=== PATIENT | male | born 1955 | race Hispanic/Latino ===

== ENCOUNTER 2018-06-29 21:20 | Inpatient (IN) | payer BC, OTHER ==
--- NOTE | 2018-06-29 21:32 | ED PDOC ---
Arrival/HPI - General Time Seen by Provider: 06/29/18 21:21 Historian: Patient - History of Present Illness Narrative History of Present Illness (Text): 06/29/18 21:20 Eduin Young is a 62 year old male smoker, whose past medical history includes NIDDM, hyperlipidemia, and GERD, who presents to the Emergency department brought in by EMS status post syncopal episode. Patient states he was in bed prior to arrival when he began feeling increasingly dizzy and weak. Patient states he attempted to get out of bed and reports patient subsequently had a syncopal episode. EMS was notified, patient noted to be in ventricular tachycardia and patient given Amiodarone bolus en route to the hospital. Rhythm strip obtained from EMS shows wide complex V-tach. On arrival to Emergency department, patient reports left-sided chest pain, with associated generalized weakness and dizziness with movement. Patient denies any history of cardiac disease, shortness of breath, fever, chills, abdominal pain, vomiting, headache, or any other complaints. PMD: Dr. Avina Time/Duration: Prior to Arrival Symptom Onset: Sudden Symptom Course: Unchanged Activities at Onset: Light Context: Home Past Medical History - Provider Review Nursing Documentation Reviewed: Yes Family/Social History - Physician Review Nursing Documentation Reviewed: Yes Family/Social History: Unknown Family HX Allergies/Home Meds Allergies/Adverse Reactions: Allergies shellfish derived Allergy (Verified 06/29/18 21:37) RASH Home Medications: Home Meds Medication Instructions Recorded Confirmed Atorvastatin [Lipitor] 20 mg PO DAILY 06/30/18 06/30/18 Omeprazole 20 mg PO DAILY 06/30/18 06/30/18 metFORMIN [glucOPHAGE] 1,000 mg PO BID 06/30/18 06/30/18 Review of Systems - Physician Review All systems were reviewed & negative as marked: Yes - Review of Systems Constitutional: Normal. absent: Fevers Eyes: Normal ENT: Normal Respiratory: Normal. absent: SOB, Cough Cardiovascular: Chest Pain, Syncope Gastrointestinal: Normal. absent: Abdominal Pain, Diarrhea, Nausea, Vomiting Genitourinary Male: Normal. absent: Dysuria, Frequency, Hematuria, Urinary Output Changes Musculoskeletal: Normal. absent: Back Pain, Neck Pain Skin: Normal. absent: Rash Neurological: Dizziness. absent: Headache Endocrine: Normal Hemo/Lymphatic: Normal Psychiatric: Normal Physical Exam Vital Signs Reviewed: Yes Temperature: Afebrile Blood Pressure: Normal Pulse: Regular Respiratory Rate: Normal Appearance: Positive for: Well-Appearing, Non-Toxic, Comfortable Pain Distress: None Mental Status: Positive for: Alert and Oriented X 3 - Systems Exam Head: Present: Atraumatic, Normocephalic Pupils: Present: PERRL Extroacular Muscles: Present: EOMI Conjunctiva: Present: Normal Mouth: Present: Moist Mucous Membranes Neck: Present: Normal Range of Motion Respiratory/Chest: Present: Clear to Auscultation, Good Air Exchange. No: Respiratory Distress, Accessory Muscle Use Cardiovascular: Present: Regular Rate and Rhythm, Normal S1, S2. No: Murmurs Abdomen: No: Tenderness, Distention, Peritoneal Signs Back: Present: Normal Inspection Upper Extremity: Present: Normal Inspection. No: Cyanosis, Edema Lower Extremity: Present: Normal Inspection. No: Edema Neurological: Present: GCS=15, CN II-XII Intact, Speech Normal Skin: Present: Warm, Dry, Normal Color. No: Rashes Psychiatric: Present: Alert, Oriented x 3, Normal Insight, Normal Concentration Medical Decision Making ED Course and Treatment: 06/29/18 21:20 Impression: 62 year old male complaining of chest pain and dizziness. Plan: -- EKG -- Chest X-ray -- Labs, cardiac enzymes -- Reassess and disposition Progress Notes: Pt seen on arrival to Emergency department. Rhythm strip obtained from EMS shows wide complex V-tach. Pt placed on continuous telemetry. 06/29/18 21:27 Reviewed EKG, NSR at [address] elevations/changes in anterolateral leads. LAD. 06/29/18 21:[address] Roblero, icebox man instrumentation technologist, EKG sent to him for review. 06/29/18 21:[address] Roblero, who reviewed EKG, states to call [facility]. Recommends pt receive Plavix, Aspirin, and Integrilin. [facility] called. 06/29/18 21:[address] Sosa, law secretary, who is aware and agrees with plan. 06/29/18 21:57 Chest X-ray reviewed, shows cardiomegaly. 06/29/18 22:08 Labs reviewed, hgb:8.9, potassium: 2.3, calcium: 5.9, troponin: 5.21. K-dur ordered. 06/29/18 22:11 Pt taken to labor mediator. 06/29/18 23:[address] Larsen, who is aware and agrees with plan. Accepts pt in to his service. Pt will be admitted to ICU for acute AL. - Critical Care Critical Care Minutes: 30 minutes Narrative Critical Care (Text): Management of [facility] - Lab Interpretations I have reviewed the lab results: Yes - RAD Interpretation Coin Machine Collector Supervisor: ED Physician - EKG Interpretation Interpreted by ED Physician: Yes Type: 12 lead EKG - Scribe Statement The provider has reviewed the documentation as recorded by the Ashwini Ledbetter Provider Scribe Attestation: All medical record entries made by the Scribe were at my direction and personally dictated by me. I have reviewed the chart and agree that the record accurately reflects my personal performance of the history, physical exam, medical decision making, and the department course for this patient. I have also personally directed, reviewed, and agree with the discharge instructions and disposition. Disposition/Present on Arrival - Present on Arrival Any Indicators Present on Arrival: No - Disposition Have Diagnosis and Disposition been Completed?: Yes Diagnosis: Acute coronary syndrome, Ventricular tachycardia Disposition: HOSPITALIZED Disposition Time: 22:11 Condition: CRITICAL
[2018-06-29] MEDS ORDERED: Eptifibatide 20 mg/10mL Inj IVP ONE ×3 (21:38→22:24)
[2018-06-29 21:45] LABS: BASO # 0.05 K/mm3 (0.0-2.0); BASO % 0.5 % (0.0-3.0); EOS # 0.2 (0.0-0.7); EOS % 2.4 % (1.5-5.0); HEMOGLOBIN 8.9 g/dL (14.0-18.0); LYMPH # 2.8 (1.2-3.4); MEAN CELL VOLUME 71.3 fl (80.0-105.0); MEAN CORPUSCULAR HEMOGLOBIN 21.4 pg (25.0-35.0); MEAN CORPUSCULAR HGB CONC 30.1 g/dl (31.0-37.0); MONO # 0.6 (0.1-0.6); MONO % 5.8 % (1.0-6.0); RBC 4.15 10^6/uL (3.5-6.1); RED CELL DISTRIBUTION WIDTH 15.8 % (11.5-14.5); WHITE BLOOD COUNT 9.7 10^3/uL (4.5-11.0)
[2018-06-29 21:54] LABS: INR 1.48; PARTIAL THROMBOPLASTIN TIME 29.7 Seconds (26.9-38.3); PROTHROMBIN TIME 16.4 SECONDS (9.4-12.5)
[2018-06-29] MEDS ORDERED: Lidocaine PF 2% (5 ml) Inj (For Cardiac Arrhy) ONE ×2 (22:04→22:17)
[2018-06-29] MEDS ORDERED: Phenylephrine 10 mg/ml Inj ONE (22:04)
[2018-06-29] MEDS ORDERED: Midazolam 2 MG/2 ML VIAL ONE ×2 (22:05→22:33)
[2018-06-29] MEDS ORDERED: Heparin 2,000 ML IV ONE (22:06)
[2018-06-29] MEDS ORDERED: Iodixanol 320 MG/ML 200 ML BOTTLE IV ONE (22:06)
[2018-06-29] MEDS ORDERED: Iohexol 350mgl/ml 50 ML ONE (22:06)
[2018-06-29] MEDS ORDERED: Nitroglycerin 50mg in D5W 0 MG/0 ML BOTTLE IV ONE (22:06)
[2018-06-29] MEDS ORDERED: Iodixanol 320 MG/ML 100 ML BOTTLE IV ONE (22:06)
[2018-06-29 22:08] LABS: ALBUMIN 2.4 g/dL (3.0-4.8); ALT/SGPT 38 U/L (7-56); AST/SGOT 31 U/L (17-59); BLOOD UREA NITROGEN 14 mg/dL (7-21); CALCIUM 5.9 mg/dL (8.4-10.5); GFR NON-AFRICAN AMERICAN > 60; TROPONIN I 5.21 ng/mL
[2018-06-29] MEDS ORDERED: Potassium Chloride 20 mEq ER Tab PO ONE (22:08)
[2018-06-29] MEDS ORDERED: Eptifibatide 0.75 mg/ml 0 MG/0 ML BOTTLE IV ONE (22:24)
[2018-06-29] MEDS ORDERED: Amiodarone 150 mg/D5W 100 ml 150 MG/100 ML BAG ONE (22:28)
[2018-06-29] MEDS ORDERED: Famotidine 20mg/50ml 20 MG/50 ML BAG IVPB ONE (22:35)
[2018-06-29] MEDS ORDERED: DiphenhydrAMINE 50 mg/ml Inj ONE (22:35)
[2018-06-29] MEDS ORDERED: Morphine 2 mg/ml ISec ONE ×2 (22:58→23:11)
--- NOTE | 2018-06-29 23:17 | CP.PCM.CON ---
<AllieKarenmyranda - Last Filed: 06/30/18 00:51> History of Present Illness - History of Present Illness History of Present Illness: PGY1 ICU Consult Note for Dr. Sosa Patient is a 62-year-old M with PMH of Hyperlipidemia, T2DM (on Metformin), intermittent rectal bleeding, hiatal hernia who presents to [facility] for dizziness that began prior to arrival. Patient states he returned from lunch with his son, when he began feeling dizzy. Patient states he went to lay down in bed, and called his because he was feeling diaphoretic and dizzy. Per Patient's , Patient was slurring his speech, which resolved in the ED, per , and this prompted her to call EMS. Patient Denies chest pain, shortness of breath, headache, fever, chills, nausea, vomiting, and/or diarrhea, hematochezia, and/or black stool. Of note, Patient's states that the Patient complained of chest pain on 06/17/18, lasted for about 1 hour, and resolved on its own, but the Patient never complained of chest pain other than this incident. PMH: HLD, DMT2 PSH: Denies Family History: Mother alive: DMT2; Dad: 06/05 idiopathic pulmonary fibrosis Medications: omeprazole 20mg po daily atrovastatin 20mg po daily Glyburide/Metformin 5/500 daily Allergies: shellfish Social History: Patient smokes < 1 PPD starting at age 47yo, denies ETOH, denies recreational drugs PMD: Dr. Avina Review of Systems - Review of Systems All systems: reviewed and no additional remarkable complaints except (as stated in HPI) Past Patient History - Past Social History Smoking Status: Current Some Days Smoker - ENDOCRINE/METABOLIC Hx Diabetes Mellitus Type 2: Yes - GASTROINTESTINAL Hx Gastroesophageal Reflux: Yes - GENITOURINARY/GYNECOLOGICAL Hx Genitourinary Disorders: No - PSYCHIATRIC Hx Substance Use: No - ANESTHESIA Hx Anesthesia: No Hx Anesthesia Reactions: No Hx Malignant Hyperthermia: No Meds Allergies/Adverse Reactions: Allergies Allergy/AdvReac Type Severity Reaction Status Date / Time shellfish derived Allergy RASH Verified 06/29/18 21:37 Physical Exam - Constitutional Appears: No Acute Distress - Head Exam Head Exam: ATRAUMATIC, NORMAL INSPECTION, NORMOCEPHALIC - Eye Exam Eye Exam: EOMI, Normal appearance Pupil Exam: NORMAL ACCOMODATION - ENT Exam ENT Exam: Mucous Membranes Moist, Normal Exam - Neck Exam Neck exam: Positive for: Normal Inspection - Respiratory Exam Respiratory Exam: Clear to Auscultation Bilateral, NORMAL BREATHING PATTERN - Cardiovascular Exam Additional comments: NSR @83bpm. Slight ST elevations/changes in anterolateral leads. LAD. - GI/Abdominal Exam GI & Abdominal Exam: Normal Bowel Sounds, Soft. absent: Tenderness - Extremities Exam Extremities exam: Positive for: normal inspection, pedal pulses present. Negative for: joint swelling, pedal edema - Back Exam Back exam: NORMAL INSPECTION - Neurological Exam Neurological exam: Alert, CN II-XII Intact, Oriented x3 - Psychiatric Exam Psychiatric exam: Normal Affect, Normal Mood - Skin Skin Exam: Dry, Intact, Normal Color, Pallor, Warm Results - Vital Signs Recent Vital Signs: Last Vital Signs Temp 98 F 06/29/18 21:29 Pulse 84 06/29/18 21:29 Resp 18 06/29/18 21:29 BP 99/72 L 06/29/18 21:29 Pulse Ox 96 06/29/18 21:29 - Labs Result Diagrams: 06/30/18 00:18 06/29/18 21:30 Labs: Laboratory Results - last 24 hr 06/29/18 06/29/18 06/29/18 21:30 21:30 21:30 WBC 9.7 RBC 4.15 Hgb 8.9 L Hct 29.6 L MCV 71.3 L MCH 21.4 L MCHC 30.1 L RDW 15.8 H Plt Count 252 MPV 9.0 Neut % (Auto) 62.3 Lymph % (Auto) 29.0 Jennings % (Auto) 5.8 Eos % (Auto) 2.4 Baso % (Auto) 0.5 Lymph # (Auto) 2.8 Jennings # (Auto) 0.6 Eos # (Auto) 0.2 Baso # (Auto) 0.05 Absolute Neuts (auto) 6.01 PT 16.4 H INR 1.48 APTT 29.7 Sodium 137 Potassium 2.3 L* Chloride 114 H Carbon Dioxide 16 L Anion Gap 9 L BUN 14 Creatinine 0.7 L Est GFR ( Amer) > 60 Est GFR (Non-Af Amer) > 60 Random Glucose 318 H* Calcium 5.9 L* Total Bilirubin < 0.1 L AST 31 ALT 38 Alkaline Phosphatase 70 Lactate Dehydrogenase 348 Total Creatine Kinase 39 Troponin I 5.21 H* Total Protein 4.8 L Albumin 2.4 L Globulin 2.4 Albumin/Globulin Ratio 1.0 L Assessment & Plan - Assessment and Plan (Free Text) Assessment: Patient is a 62-year-old M with PMH of Hyperlipidemia, T2DM (on Metformin), i ntermittent rectal bleeding, hiatal hernia who presents to [facility] for dizziness that began prior to arrival. [facility] was called 2/2 acute WI. Patient is S/P cath with Dr. Roblero and being monitored in ICU. Acute WI S/P cath with Dr. Roblero - 2 stents in circ and 2 stents placed in RCA (follow-up on official report) - Cardioloy consulted; Dr. Roblero; recommendations appreciated [facility] called in ED Plavix, Aspirin, and Integrilin - Rhythm strip obtained from EMS shows wide complex V-tach - EKG, NSR at [address] elevations/changes in anterolateral leads. LAD. - CXR: Cardiomegaly - Troponin significant: 5.21 - Plavix 75mg PO daily - ASA 81mg PO daily - O2 PRN - Consistent carb diet - Monitor in ICU History of HLD - Continue home meds: Atorvastatin 20mg Daily - F/U lipid panel DMT2 - Hold home med (GLyburide/Metformin 5/500) - Start ISS - Hypoglycemic protocol - Accu checks ACHS - F/U HgbA1C Hypokalemia, 2.3 - Repleted in ED - F/U Mg - F/U CMP - Monitor daily CMP Anemia - Type and Screen - Hgb=8.9 - Monitor daily CBC PPx: - GI: protonix - DVT: SCD on Plavix - F/U MRSA screen Patient seen and case discussed with Dr. Ian Kelley PGY1 <Jorge Sosa - Last Filed: 06/30/18 03:09> Meds - Medications Medications: Current Medications Aspirin (Ecotrin) 81 mg PO DAILY DIANA Atorvastatin Calcium (Lipitor) 40 mg PO DIN DIANA Clopidogrel Bisulfate (Plavix) 75 mg PO DAILY DIANA Dextrose (Dextrose 50% Inj) 0 ml IV STAT PRN; Protocol PRN Reason: Hypoglycemia Protocol Sodium Chloride (Sodium Chloride 0.9%) 1,000 mls @ 50 mls/hr IV .Q20H DIANA Stop: 06/30/18 06:00 Dextrose (Dextrose 5% In Water 1000 Ml) 1,000 mls @ 0 mls/hr IV .Q0M PRN; Protocol PRN Reason: Hypoglycemia Protocol Insulin Human Regular (Humulin R) 0 units SC ACHS DIANA; Protocol Last Admin: 06/30/18 02:22 Dose: 8 units Results - Vital Signs Recent Vital Signs: Last Vital Signs Temp 98 F 06/29/18 21:29 Pulse 89 06/30/18 01:45 Resp 24 06/30/18 01:45 BP 123/80 06/30/18 01:45 Pulse Ox 97 06/30/18 01:45 - Labs Result Diagrams: 06/30/18 00:18 06/30/18 00:18 Labs: Laboratory Results - last 24 hr 06/29/18 06/29/18 06/29/18 21:30 21:30 21:30 WBC 9.7 RBC 4.15 Hgb 8.9 L Hct 29.6 L MCV 71.3 L MCH 21.4 L MCHC 30.1 L RDW 15.8 H Plt Count 252 MPV 9.0 Neut % (Auto) 62.3 Lymph % (Auto) 29.0 Jennings % (Auto) 5.8 Eos % (Auto) 2.4 Baso % (Auto) 0.5 Lymph # (Auto) 2.8 Jennings # (Auto) 0.6 Eos # (Auto) 0.2 Baso # (Auto) 0.05 Absolute Neuts (auto) 6.01 PT 16.4 H INR 1.48 APTT 29.7 Sodium 137 Potassium 2.3 L* Chloride 114 H Carbon Dioxide 16 L Anion Gap 9 L BUN 14 Creatinine 0.7 L Est GFR ( Amer) > 60 Est GFR (Non-Af Amer) > 60 Random Glucose 318 H* Calcium 5.9 L* Total Bilirubin < 0.1 L AST 31 ALT 38 Alkaline Phosphatase 70 Lactate Dehydrogenase 348 Total Creatine Kinase 39 Troponin I 5.21 H* Total Protein 4.8 L Albumin 2.4 L Globulin 2.4 Albumin/Globulin Ratio 1.0 L Triglycerides Cholesterol LDL Cholesterol Direct HDL Cholesterol Blood Type Blood Type Confirm Antibody Screen BBK History Checked 06/29/18 06/30/18 06/30/18 22:33 00:18 00:18 WBC 11.6 H RBC 5.27 Hgb 11.3 L D Hct 37.8 L MCV 71.7 L MCH 21.4 L MCHC 29.9 L RDW 15.9 H Plt Count 277 MPV 9.1 Neut % (Auto) 84.3 H Lymph % (Auto) 11.5 L Jennings % (Auto) 3.5 Eos % (Auto) 0.4 L Baso % (Auto) 0.3 Lymph # (Auto) 1.3 Jennings # (Auto) 0.4 Eos # (Auto) 0.1 Baso # (Auto) 0.03 Absolute Neuts (auto) 9.78 H PT INR APTT Sodium 136 Potassium 4.2 Chloride 103 Carbon Dioxide 23 Anion Gap 14 BUN 18 Creatinine 0.9 Est GFR ( Amer) > 60 Est GFR (Non-Af Amer) > 60 Random Glucose 368 H* Calcium 8.7 Total Bilirubin AST ALT Alkaline Phosphatase Lactate Dehydrogenase Total Creatine Kinase Troponin I Total Protein Albumin Globulin Albumin/Globulin Ratio Triglycerides 272 H Cholesterol 227 H LDL Cholesterol Direct 155 H HDL Cholesterol 29 Blood Type A POSITIVE Blood Type Confirm Antibody Screen Negative BBK History Checked No verified bt 06/30/18 00:18 WBC RBC Hgb Hct MCV MCH MCHC RDW Plt Count MPV Neut % (Auto) Lymph % (Auto) Jennings % (Auto) Eos % (Auto) Baso % (Auto) Lymph # (Auto) Jennings # (Auto) Eos # (Auto) Baso # (Auto) Absolute Neuts (auto) PT INR APTT Sodium Potassium Chloride Carbon Dioxide Anion Gap BUN Creatinine Est GFR ( Amer) Est GFR (Non-Af Amer) Random Glucose Calcium Total Bilirubin AST ALT Alkaline Phosphatase Lactate Dehydrogenase Total Creatine Kinase Troponin I Total Protein Albumin Globulin Albumin/Globulin Ratio Triglycerides Cholesterol LDL Cholesterol Direct HDL Cholesterol Blood Type Blood Type Confirm A POSITIVE Antibody Screen BBK History Checked Attending/Attestation - Attestation I have personally seen and examined this patient.: Yes I have fully participated in the care of the patient.: Yes I have reviewed all pertinent clinical information: Yes Notes (Text): 06/30/18 03:08 Patient was seen when he was in the ER. Medical record was reviewed. Agree with history , physical examination, assessment and plan. CCT spent 30 minutes.
[2018-06-29] MEDS ORDERED: Amiodarone 150 mg/D5W 100 ml 150 MG/100 ML BAG IVPB ONE (23:23)
[2018-06-29] MEDS ORDERED: Sodium Chloride 0.9% 1,000 ML IV SCH (23:30)
[2018-06-30 00:39] LABS: BASO # 0.03 K/mm3 (0.0-2.0); BASO % 0.3 % (0.0-3.0); EOS # 0.1 (0.0-0.7); EOS % 0.4 % (1.5-5.0); LYMPH # 1.3 (1.2-3.4); LYMPH % 11.5 % (22.0-35.0); MEAN CELL VOLUME 71.7 fl (80.0-105.0); MEAN CORPUSCULAR HEMOGLOBIN 21.4 pg (25.0-35.0); MEAN CORPUSCULAR HGB CONC 29.9 g/dl (31.0-37.0); MEAN PLATELET VOLUME 9.1 fl (7.0-11.0); MONO # 0.4 (0.1-0.6); MONO % 3.5 % (1.0-6.0); RBC 5.27 10^6/uL (3.5-6.1); RED CELL DISTRIBUTION WIDTH 15.9 % (11.5-14.5); WHITE BLOOD COUNT 11.6 10^3/uL (4.5-11.0)
[2018-06-30 00:47] LABS: HEMOGLOBIN 11.3 g/dL (14.0-18.0)
[2018-06-30 01:54] LABS: BLOOD UREA NITROGEN 18 mg/dL (7-21); CALCIUM 8.7 mg/dL (8.4-10.5); GFR NON-AFRICAN AMERICAN > 60; HDL CHOLESTEROL 29 mg/dL (29-60); LDL CHOLESTEROL 155 mg/dL (0-129)
[2018-06-30] MEDS ORDERED: Dextrose 50% SYRINGE Inj (50 ml) IV PRN (02:00)
[2018-06-30] MEDS: Insulin Regular 1 UNITS/0.01 ML ML SC SCH ×5 (02:22→23:51)
[2018-06-30] MEDS ORDERED: Insulin Regular 1 UNITS/0.01 ML ML ONE (02:24)
--- NOTE | 2018-06-30 04:20 | CARDCATH ---
PROCEDURE DATE: 06/29/2018 EMERGENCY CARDIAC CATHETERIZATION AND PERCUTANEOUS TRANSLUMINAL CORONARY ANGIOPLASTY HISTORY: The patient is a 62-year-old male who presents with near syncope today. He was found to have ventricular tachycardia which he was given amiodarone in the field. He was brought in here with his EKG was consistent with an inferior DE as well as anterior wall DE. The patient's past medical history includes diabetes mellitus, he is an active smoker and is noncompliant with medications as well as medical advice. The patient is morbidly obese. Because of this, an emergency cardiac catheterization was recommended. PROCEDURE: Emergency left heart catheterization with coronary angiography, left ventriculogram, PTCA and stent of an occluded right coronary artery as well as the circumflex artery. The right femoral artery was cannulated with a 6-Kinyarwanda sheath. There were no complications. I performed moderate sedation which included the presence of an independent trained observer that assisted monitoring the patient's level of consciousness and physiologic status. After administration of Versed and fentanyl, my intra service time was 45 minutes. The findings on catheterization revealed left ventricle that was globally hypokinetic. Estimated ejection fraction of 35% to 40%. The patient had a right dominant circulation. The RCA was occluded in its proximal portion. The left main artery was unremarkable. The LAD was occluded in its proximal portion which appeared chronic with collaterals filling to the distal LAD. The circumflex artery was a large vessel and codominant vessel. The circumflex in the AV groove branch was free of critical lesions. There was an obtuse marginal branch which branched into the superior-inferior branch. At the branch point, there was a 99% stenoses. In addition, the large obtuse marginal branch revealed a long 80% stenosis in its mid to distal portion. The patient was started on intravenous Angiomax on the fluoroscopic guide, the guiding catheter was placed in the RCA, and 0.014 ATW wire was used to cross the total occlusion. A 2.0 balloon was utilized to predilate the lesion. This was followed by implantation of 2.75 x 18 mm drug-eluting stent. After balloon deflation and removal, repeat coronary angiography revealed an excellent result with no residual stenosis and PIPPA-3 flow. The guider was then exchanged for a 7-Kinyarwanda guider as well as the sheath. Two wires were placed into the circumflex artery. A 2.0 balloon followed by implantation of a 3.5 x 12 mm drug-eluting stent. Repeat coronary angiography revealed an excellent result in the large obtuse marginal branch with preservation of flow in the inferior branch. A 2.5 x 15 mm drug-eluting stent was placed and deployed the mid and distal obtuse marginal branch. Repeat coronary angiography revealed no residual stenosis and PIPPA-3 flow. The patient tolerated the procedure well. Angio-Seal was used to close the femoral artery site. The patient tolerated the procedure well. In summary, the procedure was an emergency PTCA and stent of an acutely occluded RCA. PTCA and stent of a 99% obtuse marginal branch vessel as well as distal lesion in the vessel, all stents were drug-eluting stents. The cardiac catheterization revealed chronically occluded LAD as well as the left ventricle was globally hypokinetic. Given these findings, the patient was gone back to the ICU and was given IV amiodarone. He will remain on aspirin indefinitely and Plavix indefinitely. We will need to track his hemoglobin carefully given his baseline hemoglobin of 8.5. Transfusion may be necessary post-procedure. Barry Roblero MD
[2018-06-30] MEDS ORDERED: Influenza Vaccine 60 mcg/0.5 mL SYR (4YR UP) IM ONE (04:28)
[2018-06-30] MEDS ORDERED: Pneumococcal 23-Valent Vaccine IM ONE (04:28)
[2018-06-30 04:29] VITALS: BMI 41.2
[2018-06-30] MEDS ORDERED: Pantoprazole 40 mg EC Tab PO SCH (06:00)
[2018-06-30 06:04] LABS: BASO # 0.01 K/mm3 (0.0-2.0); BASO % 0.1 % (0.0-3.0); HEMOGLOBIN 10.7 g/dL (14.0-18.0); LYMPH # 0.8 (1.2-3.4); LYMPH % 8.8 % (22.0-35.0); MEAN CORPUSCULAR HEMOGLOBIN 21.3 pg (25.0-35.0); MEAN PLATELET VOLUME 9.1 fl (7.0-11.0); MONO % 0.4 % (1.0-6.0); PLATELET COUNT 278 10^3/uL (120.0-450.0); RBC 5.03 10^6/uL (3.5-6.1); RED CELL DISTRIBUTION WIDTH 15.7 % (11.5-14.5); WHITE BLOOD COUNT 9.2 10^3/uL (4.5-11.0)
[2018-06-30 07:18] LABS: ALB/GLOB RATIO 1.2 (1.1-1.8); ALBUMIN 3.7 g/dL (3.0-4.8); ALT/SGPT 48 U/L (7-56); AST/SGOT 69 U/L (17-59); BLOOD UREA NITROGEN 18 mg/dL (7-21); CALCIUM 8.5 mg/dL (8.4-10.5); GFR NON-AFRICAN AMERICAN > 60
[2018-06-30 08:18] LABS: LYMPHOCYTE 8 % (22.0-35.0); NEUTROPHIL 92 % (50.0-70.0)
[2018-06-30 08:19] LABS: PLATELET ESTIMATE NORMAL (NORMAL)
--- NOTE | 2018-06-30 09:25 | PN ---
DATE: 06/30/2018 CARDIOLOGY FOLLOWUP SUBJECTIVE: The patient is in bed. He is chest pain free. PHYSICAL EXAMINATION VITAL SIGNS: Blood pressure 125/75 and heart rates in the 80s, normal sinus rhythm. NECK: Negative JVD. LUNGS: Without rales. HEART: Reveal S1 and S2. Right groin site is stable. LABORATORY DATA: Hemoglobin is 10.7. Chemistries; glucose is 453. Troponin is 5.21. IMPRESSION: 1. Status post ventricular tachycardia. 2. Status post emergency percutaneous transluminal coronary angioplasty and stent of two vessels. 3. Acute inferior wall myocardial infarction. 4. Triple-vessel coronary artery disease. 5. Diabetes mellitus. 6. Anemia. 7. blood drawings from the emergency room which resulted in the false low hemoglobin which is better now without transfusions. Given these findings, we will add beta-blockers to his regimen. We will begin to mobilize the patient, he should be out of bed to chair today. Barry Roblero MD
--- NOTE | 2018-06-30 09:36 | RAD ---
Date of service: 06/29/2018 HISTORY: cp COMPARISON: None available. FINDINGS: LUNGS: No active pulmonary disease. PLEURA: No significant pleural effusion identified, no pneumothorax apparent. CARDIOVASCULAR: No aortic atherosclerotic calcification present. Cardiomegaly evident. No pulmonary vascular congestion. OSSEOUS STRUCTURES: No significant abnormalities. VISUALIZED UPPER ABDOMEN: Normal. OTHER FINDINGS: None. IMPRESSION: Cardiomegaly. No pulmonary vascular congestion. No infiltrates bilaterally.
--- NOTE | 2018-06-30 10:03 | CARD ---
APPROVED REPORT Date of service: 06/29/2018 EKG Measurement Heart [id number] <Conclusion> Normal sinus rhythm Left axis deviation Inferior infarct, age undetermined Anteroseptal infarct, age undetermined Abnormal ECG
--- NOTE | 2018-06-30 10:24 | CP.PCM.HP ---
<Luis Alfredo Leonard - Last Filed: 06/30/18 10:20> History of Present Illness - History of Present Illness History of Present Illness: H&P for Dr Larsen: 62-year-old male with past medical history of hyperlipidemia, diabetes mellitus, hiatal hernia, and active smoker presents to the emergency room with dizziness. Patient states that last night he became dizzy at around 8 PM. He went to lay in bed however he began feeling worse including diaphoretic and more dizzy. Patient's was concerned and EMS was called. At this time EKG showed wide complex tachycardia and amiodarone was started. Patient states that he did have very mild chest pain however he attributed it to his shoulder pain on his left side. He denies any episodes of dyspnea or palpitations. No other complaints PMH: As above PSH: Denies FH: Mother with diabetes, father due to idiopathic pulmonary fibrosis, grandfather passed from an [place] Medications: Refer to MAR Allergies: Shellfish SH: Active smoker of just less than 1 pack/day for 15 years, denies any alcohol or recreational drug use Present on Admission - Present on Admission Any Indicators Present on Admission: No Review of Systems - Review of Systems All systems: reviewed and no additional remarkable complaints except Past Patient History - Past Social History Smoking Status: Current Some Days Smoker - CARDIAC Hx Cardiac Disorders: Yes Hx Hypercholesterolemia: Yes - PULMONARY Hx Respiratory Disorders: Yes (Occasional cough.) Hx Sleep Apnea: Yes (Does not use mask at home.) - NEUROLOGICAL Hx Neurological Disorder: Yes Hx Dizziness: Yes (c/o dizziness at home; 06/29/18.) - HEENT Hx HEENT Problems: No - RENAL Hx Chronic Kidney Disease: No - ENDOCRINE/METABOLIC Hx Diabetes Mellitus Type 2: Yes - HEMATOLOGICAL/ONCOLOGICAL Hx Blood Disorders: Yes Hx Anemia: Yes - INTEGUMENTARY Hx Dermatological Problems: No - MUSCULOSKELETAL/RHEUMATOLOGICAL Hx Musculoskeletal Disorders: Yes Hx Arthritis: Yes (Bilateral knees and neck. Shoulder.) Hx Falls: No Hx Spinal Stenosis: Yes - GASTROINTESTINAL Hx Gastroesophageal Reflux: Yes - GENITOURINARY/GYNECOLOGICAL Hx Genitourinary Disorders: No - PSYCHIATRIC Hx Substance Use: No - SURGICAL HISTORY Hx Surgeries: No Hx Cardiac Catheterization: Yes (Code Heart 06/29/18) Hx Coronary Stent: Yes (Code Heart 06/29/18; x3 stents (1-RCA/2-CX)) - ANESTHESIA Hx Anesthesia: No Hx Anesthesia Reactions: No Hx Malignant Hyperthermia: No Meds Allergies/Adverse Reactions: Allergies Allergy/AdvReac Type Severity Reaction Status Date / Time shellfish derived Allergy RASH Verified 06/29/18 21:37 Physical Exam - Constitutional Appears: No Acute Distress - Head Exam Head Exam: ATRAUMATIC, NORMOCEPHALIC - Eye Exam Eye Exam: EOMI, PERRL - ENT Exam ENT Exam: Mucous Membranes Moist - Respiratory Exam Respiratory Exam: Clear to Auscultation Bilateral. absent: Wheezes - Cardiovascular Exam Cardiovascular Exam: REGULAR RHYTHM, +S1, +S2 - GI/Abdominal Exam GI & Abdominal Exam: Normal Bowel Sounds, Soft. absent: Tenderness - Extremities Exam Extremities exam: Negative for: calf tenderness, pedal edema - Neurological Exam Neurological exam: Alert, Oriented x3 - Psychiatric Exam Psychiatric exam: Normal Mood - Skin Skin Exam: Dry, Warm Results - Vital Signs Recent Vital Signs: Last Vital Signs Temp 97.9 F 06/30/18 04:30 Pulse 86 06/30/18 06:00 Resp 21 06/30/18 05:30 BP 116/73 06/30/18 05:30 Pulse Ox 95 06/30/18 05:30 - Labs Result Diagrams: 06/30/18 05:25 06/30/18 05:25 Labs: Laboratory Results - last 24 hr 06/29/18 06/29/18 06/29/18 21:30 21:30 21:30 WBC 9.7 RBC 4.15 Hgb 8.9 L Hct 29.6 L MCV 71.3 L MCH 21.4 L MCHC 30.1 L RDW 15.8 H Plt Count 252 MPV 9.0 Neut % (Auto) 62.3 Lymph % (Auto) 29.0 Glynn % (Auto) 5.8 Eos % (Auto) 2.4 Baso % (Auto) 0.5 Lymph # (Auto) 2.8 Glynn # (Auto) 0.6 Eos # (Auto) 0.2 Baso # (Auto) 0.05 Absolute Neuts (auto) 6.01 Neutrophils % (Manual) Lymphocytes % (Manual) Monocytes % (Manual) Platelet Evaluation PT 16.4 H INR 1.48 APTT 29.7 Sodium 137 Potassium 2.3 L* Chloride 114 H Carbon Dioxide 16 L Anion Gap 9 L BUN 14 Creatinine 0.7 L Est GFR ( Amer) > 60 Est GFR (Non-Af Amer) > 60 POC Glucose (mg/dL) Random Glucose 318 H* Calcium 5.9 L* Phosphorus Magnesium Total Bilirubin < 0.1 L AST 31 ALT 38 Alkaline Phosphatase 70 Lactate Dehydrogenase 348 Total Creatine Kinase 39 Troponin I 5.21 H* Total Protein 4.8 L Albumin 2.4 L Globulin 2.4 Albumin/Globulin Ratio 1.0 L Triglycerides Cholesterol LDL Cholesterol Direct HDL Cholesterol Blood Type Blood Type Confirm Antibody Screen BBK History Checked 06/29/18 06/30/18 06/30/18 22:33 00:18 00:18 WBC 11.6 H RBC 5.27 Hgb 11.3 L D Hct 37.8 L MCV 71.7 L MCH 21.4 L MCHC 29.9 L RDW 15.9 H Plt Count 277 MPV 9.1 Neut % (Auto) 84.3 H Lymph % (Auto) 11.5 L Glynn % (Auto) 3.5 Eos % (Auto) 0.4 L Baso % (Auto) 0.3 Lymph # (Auto) 1.3 Glynn # (Auto) 0.4 Eos # (Auto) 0.1 Baso # (Auto) 0.03 Absolute Neuts (auto) 9.78 H Neutrophils % (Manual) Lymphocytes % (Manual) Monocytes % (Manual) Platelet Evaluation PT INR APTT Sodium 136 Potassium 4.2 Chloride 103 Carbon Dioxide 23 Anion Gap 14 BUN 18 Creatinine 0.9 Est GFR ( Amer) > 60 Est GFR (Non-Af Amer) > 60 POC Glucose (mg/dL) Random Glucose 368 H* Calcium 8.7 Phosphorus Magnesium Total Bilirubin AST ALT Alkaline Phosphatase Lactate Dehydrogenase Total Creatine Kinase Troponin I Total Protein Albumin Globulin Albumin/Globulin Ratio Triglycerides 272 H Cholesterol 227 H LDL Cholesterol Direct 155 H HDL Cholesterol 29 Blood Type A POSITIVE Blood Type Confirm Antibody Screen Negative BBK History Checked No verified bt 06/30/18 06/30/18 06/30/18 00:18 05:25 05:25 WBC 9.2 D RBC 5.03 Hgb 10.7 L Hct 35.7 L MCV 71.0 L MCH 21.3 L MCHC 30.0 L RDW 15.7 H Plt Count 278 MPV 9.1 Neut % (Auto) 90.7 H Lymph % (Auto) 8.8 L Glynn % (Auto) 0.4 L Eos % (Auto) 0.0 L Baso % (Auto) 0.1 Lymph # (Auto) 0.8 L Glynn # (Auto) 0.0 L Eos # (Auto) 0.0 Baso # (Auto) 0.01 Absolute Neuts (auto) 8.37 H Neutrophils % (Manual) 92 H Lymphocytes % (Manual) 8 L Monocytes % (Manual) TEST NOT PERFORMED Platelet Evaluation Normal PT INR APTT Sodium 134 Potassium 4.7 Chloride 103 Carbon Dioxide 23 Anion Gap 13 BUN 18 Creatinine 0.8 Est GFR ( Amer) > 60 Est GFR (Non-Af Amer) > 60 POC Glucose (mg/dL) Random Glucose 453 H* D Calcium 8.5 Phosphorus 3.0 Magnesium 1.7 Total Bilirubin 0.2 AST 69 H D ALT 48 Alkaline Phosphatase 110 Lactate Dehydrogenase Total Creatine Kinase Troponin I Total Protein 6.7 Albumin 3.7 Globulin 3.1 Albumin/Globulin Ratio 1.2 Triglycerides Cholesterol LDL Cholesterol Direct HDL Cholesterol Blood Type Blood Type Confirm A POSITIVE Antibody Screen BBK History Checked 06/30/18 07:27 WBC RBC Hgb Hct MCV MCH MCHC RDW Plt Count MPV Neut % (Auto) Lymph % (Auto) Glynn % (Auto) Eos % (Auto) Baso % (Auto) Lymph # (Auto) Glynn # (Auto) Eos # (Auto) Baso # (Auto) Absolute Neuts (auto) Neutrophils % (Manual) Lymphocytes % (Manual) Monocytes % (Manual) Platelet Evaluation PT INR APTT Sodium Potassium Chloride Carbon Dioxide Anion Gap BUN Creatinine Est GFR ( Amer) Est GFR (Non-Af Amer) POC Glucose (mg/dL) 359 H Random Glucose Calcium Phosphorus Magnesium Total Bilirubin AST ALT Alkaline Phosphatase Lactate Dehydrogenase Total Creatine Kinase Troponin I Total Protein Albumin Globulin Albumin/Globulin Ratio Triglycerides Cholesterol LDL Cholesterol Direct HDL Cholesterol Blood Type Blood Type Confirm Antibody Screen BBK History Checked Assessment & Plan - Assessment and Plan (Free Text) Assessment: 1. Acute myocardial infarction s/p cardiac catheterization with 3 stent placement 2. Hypokalemia, now resolved 3. Hypocalcemia, now resolved 4. Hyperlipidemia 5. Diabetes mellitus, non-insulin requiring 6. Active smoker 7. Hiatal hernia 8. Elevated BMI In the emergency room patient was noted to have STEMI on the EKG, code heart was called and patient was taken for emergency cardiac catheterization, with 3 drug- eluting stents placed. Follow-up further cardiology recommendations. Continue aspirin, Plavix, amiodarone, and metoprolol. Chest x-ray showed cardiomegaly. Continue Lipitor for his hyper lipidemia. Continue insulin sliding scale for his diabetes. Patient is currently on a consistent carb diet. Patient's hypokalemia and Hypocalcemia have now resolved, we will continue to monitor. I educated patient on the importance of smoking cessation. I also educated the patient on diet and exercise. Continue to monitor for any changes. Case and plan was reviewed and discussed with Dr. Larsen. <Tremayne Larsen S - Last Filed: 06/30/18 16:44> Results - Vital Signs Recent Vital Signs: Last Vital Signs Temp 97.9 F 06/30/18 04:30 Pulse 74 06/30/18 14:00 Resp 21 06/30/18 05:30 BP 102/69 06/30/18 10:19 Pulse Ox 95 06/30/18 05:30 - Labs Result Diagrams: 06/30/18 05:25 06/30/18 05:25 Labs: Laboratory Results - last 24 hr 06/29/18 06/29/18 06/29/18 21:30 21:30 21:30 WBC 9.7 RBC 4.15 Hgb 8.9 L Hct 29.6 L MCV 71.3 L MCH 21.4 L MCHC 30.1 L RDW 15.8 H Plt Count 252 MPV 9.0 Neut % (Auto) 62.3 Lymph % (Auto) 29.0 Glynn % (Auto) 5.8 Eos % (Auto) 2.4 Baso % (Auto) 0.5 Lymph # (Auto) 2.8 Glynn # (Auto) 0.6 Eos # (Auto) 0.2 Baso # (Auto) 0.05 Absolute Neuts (auto) 6.01 Neutrophils % (Manual) Lymphocytes % (Manual) Monocytes % (Manual) Platelet Evaluation PT 16.4 H INR 1.48 APTT 29.7 Sodium 137 Potassium 2.3 L* Chloride 114 H Carbon Dioxide 16 L Anion Gap 9 L BUN 14 Creatinine 0.7 L Est GFR ( Amer) > 60 Est GFR (Non-Af Amer) > 60 POC Glucose (mg/dL) Random Glucose 318 H* Hemoglobin A1c Calcium 5.9 L* Phosphorus Magnesium Total Bilirubin < 0.1 L AST 31 ALT 38 Alkaline Phosphatase 70 Lactate Dehydrogenase 348 Total Creatine Kinase 39 Troponin I 5.21 H* Total Protein 4.8 L Albumin 2.4 L Globulin 2.4 Albumin/Globulin Ratio 1.0 L Triglycerides Cholesterol LDL Cholesterol Direct HDL Cholesterol Blood Type Blood Type Confirm Antibody Screen BBK History Checked 06/29/18 06/30/18 06/30/18 22:33 00:18 00:18 WBC 11.6 H RBC 5.27 Hgb 11.3 L D Hct 37.8 L MCV 71.7 L MCH 21.4 L MCHC 29.9 L RDW 15.9 H Plt Count 277 MPV 9.1 Neut % (Auto) 84.3 H Lymph % (Auto) 11.5 L Glynn % (Auto) 3.5 Eos % (Auto) 0.4 L Baso % (Auto) 0.3 Lymph # (Auto) 1.3 Glynn # (Auto) 0.4 Eos # (Auto) 0.1 Baso # (Auto) 0.03 Absolute Neuts (auto) 9.78 H Neutrophils % (Manual) Lymphocytes % (Manual) Monocytes % (Manual) Platelet Evaluation PT INR APTT Sodium 136 Potassium 4.2 Chloride 103 Carbon Dioxide 23 Anion Gap 14 BUN 18 Creatinine 0.9 Est GFR ( Amer) > 60 Est GFR (Non-Af Amer) > 60 POC Glucose (mg/dL) Random Glucose 368 H* Hemoglobin A1c Calcium 8.7 Phosphorus Magnesium Total Bilirubin AST ALT Alkaline Phosphatase Lactate Dehydrogenase Total Creatine Kinase Troponin I Total Protein Albumin Globulin Albumin/Globulin Ratio Triglycerides 272 H Cholesterol 227 H LDL Cholesterol Direct 155 H HDL Cholesterol 29 Blood Type A POSITIVE Blood Type Confirm Antibody Screen Negative BBK History Checked No verified bt 06/30/18 06/30/18 06/30/18 00:18 00:18 05:25 WBC 9.2 D RBC 5.03 Hgb 10.7 L Hct 35.7 L MCV 71.0 L MCH 21.3 L MCHC 30.0 L RDW 15.7 H Plt Count 278 MPV 9.1 Neut % (Auto) 90.7 H Lymph % (Auto) 8.8 L Glynn % (Auto) 0.4 L Eos % (Auto) 0.0 L Baso % (Auto) 0.1 Lymph # (Auto) 0.8 L Glynn # (Auto) 0.0 L Eos # (Auto) 0.0 Baso # (Auto) 0.01 Absolute Neuts (auto) 8.37 H Neutrophils % (Manual) 92 H Lymphocytes % (Manual) 8 L Monocytes % (Manual) TEST NOT PERFORMED Platelet Evaluation Normal PT INR APTT Sodium Potassium Chloride Carbon Dioxide Anion Gap BUN Creatinine Est GFR ( Amer) Est GFR (Non-Af Amer) POC Glucose (mg/dL) Random Glucose Hemoglobin A1c 12.8 H Calcium Phosphorus Magnesium Total Bilirubin AST ALT Alkaline Phosphatase Lactate Dehydrogenase Total Creatine Kinase Troponin I Total Protein Albumin Globulin Albumin/Globulin Ratio Triglycerides Cholesterol LDL Cholesterol Direct HDL Cholesterol Blood Type Blood Type Confirm A POSITIVE Antibody Screen BBK History Checked 06/30/18 06/30/18 06/30/18 05:25 07:27 11:54 WBC RBC Hgb Hct MCV MCH MCHC RDW Plt Count MPV Neut % (Auto) Lymph % (Auto) Glynn % (Auto) Eos % (Auto) Baso % (Auto) Lymph # (Auto) Glynn # (Auto) Eos # (Auto) Baso # (Auto) Absolute Neuts (auto) Neutrophils % (Manual) Lymphocytes % (Manual) Monocytes % (Manual) Platelet Evaluation PT INR APTT Sodium 134 Potassium 4.7 Chloride 103 Carbon Dioxide 23 Anion Gap 13 BUN 18 Creatinine 0.8 Est GFR ( Amer) > 60 Est GFR (Non-Af Amer) > 60 POC Glucose (mg/dL) 359 H 332 H Random Glucose 453 H* D Hemoglobin A1c Calcium 8.5 Phosphorus 3.0 Magnesium 1.7 Total Bilirubin 0.2 AST 69 H D ALT 48 Alkaline Phosphatase 110 Lactate Dehydrogenase Total Creatine Kinase Troponin I Total Protein 6.7 Albumin 3.7 Globulin 3.1 Albumin/Globulin Ratio 1.2 Triglycerides Cholesterol LDL Cholesterol Direct HDL Cholesterol Blood Type Blood Type Confirm Antibody Screen BBK History Checked 06/30/18 15:56 WBC RBC Hgb Hct MCV MCH MCHC RDW Plt Count MPV Neut % (Auto) Lymph % (Auto) Glynn % (Auto) Eos % (Auto) Baso % (Auto) Lymph # (Auto) Glynn # (Auto) Eos # (Auto) Baso # (Auto) Absolute Neuts (auto) Neutrophils % (Manual) Lymphocytes % (Manual) Monocytes % (Manual) Platelet Evaluation PT INR APTT Sodium Potassium Chloride Carbon Dioxide Anion Gap BUN Creatinine Est GFR ( Amer) Est GFR (Non-Af Amer) POC Glucose (mg/dL) 317 H Random Glucose Hemoglobin A1c Calcium Phosphorus Magnesium Total Bilirubin AST ALT Alkaline Phosphatase Lactate Dehydrogenase Total Creatine Kinase Troponin I Total Protein Albumin Globulin Albumin/Globulin Ratio Triglycerides Cholesterol LDL Cholesterol Direct HDL Cholesterol Blood Type Blood Type Confirm Antibody Screen BBK History Checked Assessment & Plan - Assessment and Plan (Free Text) Assessment: Pt seen and examined by me. I have reviewed the note of the medical insurance coder and I agree with it. I have discussed the assessment and plan with the resident. I have reviewed the medications and the last labs. STEMI with stents. Obese with BMI-41.
--- NOTE | 2018-06-30 11:52 | CARD ---
APPROVED REPORT Date of service: 06/30/2018 EKG Measurement Heart [id number] <Conclusion> Normal sinus rhythm Inferior infarct, age Old. Anteroseptal infarct, age Old.
--- NOTE | 2018-06-30 14:42 | CP.CCUPN ---
<Alden Barragan - Last Filed: 06/30/18 14:36> CCU Subjective - Physician Review Subjective (Free Text): 06/30/18 14:36 Alden Barragan, PGY-1 ICU Progress Note: Pt was seen and examined this AM at bedside. Pt states that he no longer feels any chest pain that he did prior to the cath. At this time he states that he does not have any acute complaints. He denies chest pain, palpitations, lightheadedness, weakness, SOB, cough, abd pain, n/v, c/d, dysuria or groin pain/soreness. CCU Objective - Vital Signs / Intake & Output Intake and Output (Last 8hrs): Intake & Output 06/29/18 06/30/18 06/30/18 22:59 06:59 14:59 Intake Total 605 Output Total 1400 Balance -795 Weight 320 lb 312 lb 8 oz Intake: IV 365 Left Hand 365 Right Antecubital 0 Right Hand 0 Oral 240 Tube Feeding 0 TPN/PPN 0 Blood Product 0 Lipid 0 Albumin 0 Other 0 Output: Urine 1400 Urine, Voided 1400 Stool 0 Urine/Stool Mix 0 Emesis 0 Oral Regurgitation 0 Other 0 Other: Voiding Method Urinal # Voids Urine, Voided 5 # Bowel Movements 0 - Physical Exam Head: Positive for: Atraumatic, Normocephalic Pupils: Positive for: PERRL Extroacular Muscles: Positive for: EOMI Conjunctiva: Positive for: Normal Mouth: Positive for: Moist Mucous Membranes Neck: Positive for: Normal Range of Motion Respiratory/Chest: Positive for: Clear to Auscultation, Good Air Exchange. Negative for: Respiratory Distress, Accessory Muscle Use Cardiovascular: Positive for: Regular Rate and Rhythm, Normal S1, S2. Negative for: Murmurs Abdomen: Positive for: Normal Bowel Sounds. Negative for: Tenderness, Distention, Peritoneal Signs Back: Positive for: Normal Inspection Upper Extremity: Positive for: Normal Inspection, NORMAL PULSES, Capillary Refill < 2s. Negative for: Cyanosis, Edema Lower Extremity: Positive for: Normal Inspection, Other (No ecchymosis or tenderness noted at site of access for cath at R groin. Dressing noted to be clean, dry and intact. ). Negative for: Edema Neurological: Positive for: GCS=15, CN II-XII Intact, Speech Normal Skin: Positive for: Warm, Dry, Normal Color. Negative for: Rashes Psychiatric: Positive for: Alert, Oriented x 3, Normal Insight, Normal Concentration - Medications Active Medications: Active Medications Generic Name Dose Route Start Last Admin Trade Name Freq PRN Reason Stop Dose Admin Aspirin 81 mg 06/30/18 10:00 06/30/18 10:19 Ecotrin PO 81 mg DAILY DIANA Administration Atorvastatin Calcium 40 mg 06/30/18 17:00 Lipitor PO DIN DIANA Clopidogrel Bisulfate 75 mg 06/30/18 10:00 06/30/18 10:19 Plavix PO 75 mg DAILY DIANA Administration Dextrose 0 ml 06/30/18 02:00 Dextrose 50% Inj IV STAT PRN Hypoglycemia Protocol Protocol Dextrose 1,000 mls @ 0 mls/hr 06/30/18 02:00 Dextrose 5% In Water 1000 Ml IV .Q0M PRN Hypoglycemia Protocol Protocol Per Protocol Insulin Human Regular 0 units 06/30/18 07:30 06/30/18 13:29 Humulin R SC 7 units ACHS DIANA Administration Protocol Metoprolol Tartrate 25 mg 06/30/18 10:00 06/30/18 10:19 Lopressor PO 25 mg BID DIANA Administration - Patient Studies Lab Studies: Lab Studies 06/30/18 06/30/18 06/30/18 Range/Units 07:27 05:25 05:25 WBC 9.2 D (4.5-11.0) 10^3/uL RBC 5.03 (3.5-6.1) 10^6/uL Hgb 10.7 L (14.0-18.0) g/dL Hct 35.7 L (42.0-52.0) % MCV 71.0 L (80.0-105.0) fl MCH 21.3 L (25.0-35.0) pg MCHC 30.0 L (31.0-37.0) g/dl RDW 15.7 H (11.5-14.5) % Plt Count 278 (120.0-450.0) 10^3/uL MPV 9.1 (7.0-11.0) fl Neut % (Auto) 90.7 H (50.0-68.0) % Lymph % (Auto) 8.8 L (22.0-35.0) % [place] % (Auto) 0.4 L (1.0-6.0) % Eos % (Auto) 0.0 L (1.5-5.0) % Baso % (Auto) 0.1 (0.0-3.0) % Lymph # (Auto) 0.8 L (1.2-3.4) [place] # (Auto) 0.0 L (0.1-0.6) Eos # (Auto) 0.0 (0.0-0.7) Baso # (Auto) 0.01 (0.0-2.0) K/mm3 Absolute Neuts (auto) 8.37 H (1.4-6.5) Neutrophils % (Manual) 92 H (50.0-70.0) % Lymphocytes % (Manual) 8 L (22.0-35.0) % Monocytes % (Manual) TEST NOT PERFORMED Platelet Evaluation Normal (NORMAL) PT (9.4-12.5) SECONDS INR APTT (26.9-38.3) Seconds Sodium 134 (132-148) mmol/L Potassium 4.7 (3.6-5.0) mmol/L Chloride 103 (98-107) mmol/L Carbon Dioxide 23 (21-33) mmol/L Anion Gap 13 (10-20) BUN 18 (7-21) mg/dL Creatinine 0.8 (0.8-1.5) mg/dl Est GFR ( Amer) > 60 Est GFR (Non-Af Amer) > 60 POC Glucose (mg/dL) 359 H (65-110) mg/dL Random Glucose 453 H* D (70-110) mg/dL Hemoglobin A1c (4.2-6.5) % Calcium 8.5 (8.4-10.5) mg/dL Phosphorus 3.0 (2.5-4.5) mg/dL Magnesium 1.7 (1.7-2.2) mg/dL Total Bilirubin 0.2 (0.2-1.3) mg/dL AST 69 H D (17-59) U/L ALT 48 (7-56) U/L Alkaline Phosphatase 110 (38-126) U/L Lactate Dehydrogenase (333-699) U/L Total Creatine Kinase (35-230) U/L Troponin I ng/mL Total Protein 6.7 (5.8-8.3) g/dL Albumin 3.7 (3.0-4.8) g/dL Globulin 3.1 gm/dL Albumin/Globulin Ratio 1.2 (1.1-1.8) Triglycerides (35-160) mg/dL Cholesterol (130-200) mg/dL LDL Cholesterol Direct (0-129) mg/dL HDL Cholesterol (29-60) mg/dL Blood Type Blood Type Confirm Antibody Screen BBK History Checked 06/30/18 06/30/18 06/30/18 Range/Units 00:18 00:18 00:18 WBC (4.5-11.0) 10^3/uL RBC (3.5-6.1) 10^6/uL Hgb (14.0-18.0) g/dL Hct (42.0-52.0) % MCV (80.0-105.0) fl MCH (25.0-35.0) pg MCHC (31.0-37.0) g/dl RDW (11.5-14.5) % Plt Count (120.0-450.0) 10^3/uL MPV (7.0-11.0) fl Neut % (Auto) (50.0-68.0) % Lymph % (Auto) (22.0-35.0) % [place] % (Auto) (1.0-6.0) % Eos % (Auto) (1.5-5.0) % Baso % (Auto) (0.0-3.0) % Lymph # (Auto) (1.2-3.4) [place] # (Auto) (0.1-0.6) Eos # (Auto) (0.0-0.7) Baso # (Auto) (0.0-2.0) K/mm3 Absolute Neuts (auto) (1.4-6.5) Neutrophils % (Manual) (50.0-70.0) % Lymphocytes % (Manual) (22.0-35.0) % Monocytes % (Manual) Platelet Evaluation (NORMAL) PT (9.4-12.5) SECONDS INR APTT (26.9-38.3) Seconds Sodium 136 (132-148) mmol/L Potassium 4.2 (3.6-5.0) mmol/L Chloride 103 (98-107) mmol/L Carbon Dioxide 23 (21-33) mmol/L Anion Gap 14 (10-20) BUN 18 (7-21) mg/dL Creatinine 0.9 (0.8-1.5) mg/dl Est GFR ( Amer) > 60 Est GFR (Non-Af Amer) > 60 POC Glucose (mg/dL) (65-110) mg/dL Random Glucose 368 H* (70-110) mg/dL Hemoglobin A1c 12.8 H (4.2-6.5) % Calcium 8.7 (8.4-10.5) mg/dL Phosphorus (2.5-4.5) mg/dL Magnesium (1.7-2.2) mg/dL Total Bilirubin (0.2-1.3) mg/dL AST (17-59) U/L ALT (7-56) U/L Alkaline Phosphatase (38-126) U/L Lactate Dehydrogenase (333-699) U/L Total Creatine Kinase (35-230) U/L Troponin I ng/mL Total Protein (5.8-8.3) g/dL Albumin (3.0-4.8) g/dL Globulin gm/dL Albumin/Globulin Ratio (1.1-1.8) Triglycerides 272 H (35-160) mg/dL Cholesterol 227 H (130-200) mg/dL LDL Cholesterol Direct 155 H (0-129) mg/dL HDL Cholesterol 29 (29-60) mg/dL Blood Type Blood Type Confirm A POSITIVE Antibody Screen BBK History Checked 06/30/18 06/29/18 06/29/18 Range/Units 00:18 22:33 21:30 WBC 11.6 H (4.5-11.0) 10^3/uL RBC 5.27 (3.5-6.1) 10^6/uL Hgb 11.3 L D (14.0-18.0) g/dL Hct 37.8 L (42.0-52.0) % MCV 71.7 L (80.0-105.0) fl MCH 21.4 L (25.0-35.0) pg MCHC 29.9 L (31.0-37.0) g/dl RDW 15.9 H (11.5-14.5) % Plt Count 277 (120.0-450.0) 10^3/uL MPV 9.1 (7.0-11.0) fl Neut % (Auto) 84.3 H (50.0-68.0) % Lymph % (Auto) 11.5 L (22.0-35.0) % [place] % (Auto) 3.5 (1.0-6.0) % Eos % (Auto) 0.4 L (1.5-5.0) % Baso % (Auto) 0.3 (0.0-3.0) % Lymph # (Auto) 1.3 (1.2-3.4) [place] # (Auto) 0.4 (0.1-0.6) Eos # (Auto) 0.1 (0.0-0.7) Baso # (Auto) 0.03 (0.0-2.0) K/mm3 Absolute Neuts (auto) 9.78 H (1.4-6.5) Neutrophils % (Manual) (50.0-70.0) % Lymphocytes % (Manual) (22.0-35.0) % Monocytes % (Manual) Platelet Evaluation (NORMAL) PT (9.4-12.5) SECONDS INR APTT (26.9-38.3) Seconds Sodium 137 (132-148) mmol/L Potassium 2.3 L* (3.6-5.0) mmol/L Chloride 114 H (98-107) mmol/L Carbon Dioxide 16 L (21-33) mmol/L Anion Gap 9 L (10-20) BUN 14 (7-21) mg/dL Creatinine 0.7 L (0.8-1.5) mg/dl Est GFR ( Amer) > 60 Est GFR (Non-Af Amer) > 60 POC Glucose (mg/dL) (65-110) mg/dL Random Glucose 318 H* (70-110) mg/dL Hemoglobin A1c (4.2-6.5) % Calcium 5.9 L* (8.4-10.5) mg/dL Phosphorus (2.5-4.5) mg/dL Magnesium (1.7-2.2) mg/dL Total Bilirubin < 0.1 L (0.2-1.3) mg/dL AST 31 (17-59) U/L ALT 38 (7-56) U/L Alkaline Phosphatase 70 (38-126) U/L Lactate Dehydrogenase 348 (333-699) U/L Total Creatine Kinase 39 (35-230) U/L Troponin I 5.21 H* ng/mL Total Protein 4.8 L (5.8-8.3) g/dL Albumin 2.4 L (3.0-4.8) g/dL Globulin 2.4 gm/dL Albumin/Globulin Ratio 1.0 L (1.1-1.8) Triglycerides (35-160) mg/dL Cholesterol (130-200) mg/dL LDL Cholesterol Direct (0-129) mg/dL HDL Cholesterol (29-60) mg/dL Blood Type A POSITIVE Blood Type Confirm Antibody Screen Negative BBK History Checked No verified bt 06/29/18 06/29/18 Range/Units 21:30 21:30 WBC 9.7 (4.5-11.0) 10^3/uL RBC 4.15 (3.5-6.1) 10^6/uL Hgb 8.9 L (14.0-18.0) g/dL Hct 29.6 L (42.0-52.0) % MCV 71.3 L (80.0-105.0) fl MCH 21.4 L (25.0-35.0) pg MCHC 30.1 L (31.0-37.0) g/dl RDW 15.8 H (11.5-14.5) % Plt Count 252 (120.0-450.0) 10^3/uL MPV 9.0 (7.0-11.0) fl Neut % (Auto) 62.3 (50.0-68.0) % Lymph % (Auto) 29.0 (22.0-35.0) % [place] % (Auto) 5.8 (1.0-6.0) % Eos % (Auto) 2.4 (1.5-5.0) % Baso % (Auto) 0.5 (0.0-3.0) % Lymph # (Auto) 2.8 (1.2-3.4) [place] # (Auto) 0.6 (0.1-0.6) Eos # (Auto) 0.2 (0.0-0.7) Baso # (Auto) 0.05 (0.0-2.0) K/mm3 Absolute Neuts (auto) 6.01 (1.4-6.5) Neutrophils % (Manual) (50.0-70.0) % Lymphocytes % (Manual) (22.0-35.0) % Monocytes % (Manual) Platelet Evaluation (NORMAL) PT 16.4 H (9.4-12.5) SECONDS INR 1.48 APTT 29.7 (26.9-38.3) Seconds Sodium (132-148) mmol/L Potassium (3.6-5.0) mmol/L Chloride (98-107) mmol/L Carbon Dioxide (21-33) mmol/L Anion Gap (10-20) BUN (7-21) mg/dL Creatinine (0.8-1.5) mg/dl Est GFR ( Amer) Est GFR (Non-Af Amer) POC Glucose (mg/dL) (65-110) mg/dL Random Glucose (70-110) mg/dL Hemoglobin A1c (4.2-6.5) % Calcium (8.4-10.5) mg/dL Phosphorus (2.5-4.5) mg/dL Magnesium (1.7-2.2) mg/dL Total Bilirubin (0.2-1.3) mg/dL AST (17-59) U/L ALT (7-56) U/L Alkaline Phosphatase (38-126) U/L Lactate Dehydrogenase (333-699) U/L Total Creatine Kinase (35-230) U/L Troponin I ng/mL Total Protein (5.8-8.3) g/dL Albumin (3.0-4.8) g/dL Globulin gm/dL Albumin/Globulin Ratio (1.1-1.8) Triglycerides (35-160) mg/dL Cholesterol (130-200) mg/dL LDL Cholesterol Direct (0-129) mg/dL HDL Cholesterol (29-60) mg/dL Blood Type Blood Type Confirm Antibody Screen BBK History Checked Laboratory Results - last 24 hr 06/29/18 06/29/18 06/29/18 21:30 21:30 21:30 WBC 9.7 RBC 4.15 Hgb 8.9 L Hct 29.6 L MCV 71.3 L MCH 21.4 L MCHC 30.1 L RDW 15.8 H Plt Count 252 MPV 9.0 Neut % (Auto) 62.3 Lymph % (Auto) 29.0 [place] % (Auto) 5.8 Eos % (Auto) 2.4 Baso % (Auto) 0.5 Lymph # (Auto) 2.8 [place] # (Auto) 0.6 Eos # (Auto) 0.2 Baso # (Auto) 0.05 Absolute Neuts (auto) 6.01 Neutrophils % (Manual) Lymphocytes % (Manual) Monocytes % (Manual) Platelet Evaluation PT 16.4 H INR 1.48 APTT 29.7 Sodium 137 Potassium 2.3 L* Chloride 114 H Carbon Dioxide 16 L Anion Gap 9 L BUN 14 Creatinine 0.7 L Est GFR ( Amer) > 60 Est GFR (Non-Af Amer) > 60 POC Glucose (mg/dL) Random Glucose 318 H* Hemoglobin A1c Calcium 5.9 L* Phosphorus Magnesium Total Bilirubin < 0.1 L AST 31 ALT 38 Alkaline Phosphatase 70 Lactate Dehydrogenase 348 Total Creatine Kinase 39 Troponin I 5.21 H* Total Protein 4.8 L Albumin 2.4 L Globulin 2.4 Albumin/Globulin Ratio 1.0 L Triglycerides Cholesterol LDL Cholesterol Direct HDL Cholesterol Blood Type Blood Type Confirm Antibody Screen BBK History Checked 06/29/18 06/30/18 06/30/18 22:33 00:18 00:18 WBC 11.6 H RBC 5.27 Hgb 11.3 L D Hct 37.8 L MCV 71.7 L MCH 21.4 L MCHC 29.9 L RDW 15.9 H Plt Count 277 MPV 9.1 Neut % (Auto) 84.3 H Lymph % (Auto) 11.5 L [place] % (Auto) 3.5 Eos % (Auto) 0.4 L Baso % (Auto) 0.3 Lymph # (Auto) 1.3 [place] # (Auto) 0.4 Eos # (Auto) 0.1 Baso # (Auto) 0.03 Absolute Neuts (auto) 9.78 H Neutrophils % (Manual) Lymphocytes % (Manual) Monocytes % (Manual) Platelet Evaluation PT INR APTT Sodium 136 Potassium 4.2 Chloride 103 Carbon Dioxide 23 Anion Gap 14 BUN 18 Creatinine 0.9 Est GFR ( Amer) > 60 Est GFR (Non-Af Amer) > 60 POC Glucose (mg/dL) Random Glucose 368 H* Hemoglobin A1c Calcium 8.7 Phosphorus Magnesium Total Bilirubin AST ALT Alkaline Phosphatase Lactate Dehydrogenase Total Creatine Kinase Troponin I Total Protein Albumin Globulin Albumin/Globulin Ratio Triglycerides 272 H Cholesterol 227 H LDL Cholesterol Direct 155 H HDL Cholesterol 29 Blood Type A POSITIVE Blood Type Confirm Antibody Screen Negative BBK History Checked No verified bt 06/30/18 06/30/18 06/30/18 00:18 00:18 05:25 WBC 9.2 D RBC 5.03 Hgb 10.7 L Hct 35.7 L MCV 71.0 L MCH 21.3 L MCHC 30.0 L RDW 15.7 H Plt Count 278 MPV 9.1 Neut % (Auto) 90.7 H Lymph % (Auto) 8.8 L [place] % (Auto) 0.4 L Eos % (Auto) 0.0 L Baso % (Auto) 0.1 Lymph # (Auto) 0.8 L [place] # (Auto) 0.0 L Eos # (Auto) 0.0 Baso # (Auto) 0.01 Absolute Neuts (auto) 8.37 H Neutrophils % (Manual) 92 H Lymphocytes % (Manual) 8 L Monocytes % (Manual) TEST NOT PERFORMED Platelet Evaluation Normal PT INR APTT Sodium Potassium Chloride Carbon Dioxide Anion Gap BUN Creatinine Est GFR ( Amer) Est GFR (Non-Af Amer) POC Glucose (mg/dL) Random Glucose Hemoglobin A1c 12.8 H Calcium Phosphorus Magnesium Total Bilirubin AST ALT Alkaline Phosphatase Lactate Dehydrogenase Total Creatine Kinase Troponin I Total Protein Albumin Globulin Albumin/Globulin Ratio Triglycerides Cholesterol LDL Cholesterol Direct HDL Cholesterol Blood Type Blood Type Confirm A POSITIVE Antibody Screen BBK History Checked 06/30/18 06/30/18 05:25 07:27 WBC RBC Hgb Hct MCV MCH MCHC RDW Plt Count MPV Neut % (Auto) Lymph % (Auto) [place] % (Auto) Eos % (Auto) Baso % (Auto) Lymph # (Auto) [place] # (Auto) Eos # (Auto) Baso # (Auto) Absolute Neuts (auto) Neutrophils % (Manual) Lymphocytes % (Manual) Monocytes % (Manual) Platelet Evaluation PT INR APTT Sodium 134 Potassium 4.7 Chloride 103 Carbon Dioxide 23 Anion Gap 13 BUN 18 Creatinine 0.8 Est GFR ( Amer) > 60 Est GFR (Non-Af Amer) > 60 POC Glucose (mg/dL) 359 H Random Glucose 453 H* D Hemoglobin A1c Calcium 8.5 Phosphorus 3.0 Magnesium 1.7 Total Bilirubin 0.2 AST 69 H D ALT 48 Alkaline Phosphatase 110 Lactate Dehydrogenase Total Creatine Kinase Troponin I Total Protein 6.7 Albumin 3.7 Globulin 3.1 Albumin/Globulin Ratio 1.2 Triglycerides Cholesterol LDL Cholesterol Direct HDL Cholesterol Blood Type Blood Type Confirm Antibody Screen BBK History Checked Radiology Impressions: Radiology Impressions Chest X-Ray 06/29/18 21:39 IMPRESSION: Cardiomegaly. No pulmonary vascular congestion. No infiltrates bilaterally. EKG/Cardiology Studies: Cardiology / EKG Studies 06/29/18 21:39 ELECTROCARDIOGRAM Stat Comment: Reason For Exam: cp 06/29/18 23:23 ELECTROCARDIOGRAM Urgent Comment: 12 lead EKG upon arrival in unit Reason For Exam: post ptca 06/30/18 23:30 ELECTROCARDIOGRAM DAILY Comment: Reason For Exam: chest pain Fingerstick Blood Sugar Results: 332 Critical Care Progress Note - Nutrition Nutrition: Nutrition Category Date Time Status Consistent Carbohydrate [DIET] Diets 06/29/18 Breakfast Ordered Assessment/Plan - Assessment and Plan (Free Text) Assessment: Pt is a 62yo M with pmhx of HLD, NIDDM2, and hiatal hernia who presented to the ED for dizziness and was noted to have VTach and subsequent code was called. In the seed analysis laboratory assistant pt had 4 stents placed, 2 in RCA and 2 in L Circ. Plan: Neuro: - AOx3 - Optimize circadian rhythm Cardio: Acute inferior wall [place] s/p cardiac cath with 4 RAFA stent placement - Cont ASA and Plavix indefinitely , per cardio - Cont lopressor and lipitor - Started on lisinopril - Echo - Maintain MAP >65 Endo: - ISS - Ensure euglycemia Pulm: - Maintain O2 sat >92 Nephro: - Maintain euvolemia GI: - Carb consistent diet PPx: DVT: SCDs Pt was seen and discussed with Dr. Leland Barragan, PGY-1 <Fly [facility] - Last Filed: 06/30/18 17:02> CCU Objective - Vital Signs / Intake & Output Vital Signs (Last 4 hours): Vital Signs Pulse 06/30/18 14:00 74 Intake and Output (Last 8hrs): Intake & Output 06/30/18 06/30/18 06/30/18 06:59 14:59 22:59 Intake Total 605 Output Total 1400 Balance -795 Weight 312 lb 8 oz Intake: IV 365 Left Hand 365 Right Antecubital 0 Right Hand 0 Oral 240 Tube Feeding 0 TPN/PPN 0 Blood Product 0 Lipid 0 Albumin 0 Other 0 Output: Urine 1400 Urine, Voided 1400 Stool 0 Urine/Stool Mix 0 Emesis 0 Oral Regurgitation 0 Other 0 Other: Voiding Method Urinal # Voids Urine, Voided 5 # Bowel Movements 0 - Medications Active Medications: Active Medications Generic Name Dose Route Start Last Admin Trade Name Freq PRN Reason Stop Dose Admin Amiodarone HCl 400 mg 07/01/18 10:00 Cordarone PO DAILY [facility] Aspirin 81 mg 06/30/18 10:00 06/30/18 10:19 Ecotrin PO 81 mg DAILY DIANA Administration Atorvastatin Calcium 40 mg 06/30/18 17:00 Lipitor PO DIN DIANA Clopidogrel Bisulfate 75 mg 06/30/18 10:00 06/30/18 10:19 Plavix PO 75 mg DAILY DIANA Administration Dextrose 0 ml 06/30/18 02:00 Dextrose 50% Inj IV STAT PRN Hypoglycemia Protocol Protocol Dextrose 1,000 mls @ 0 mls/hr 06/30/18 02:00 Dextrose 5% In Water 1000 Ml IV .Q0M PRN Hypoglycemia Protocol Protocol Per Protocol Insulin Human Regular 0 units 06/30/18 07:30 06/30/18 13:29 Humulin R SC 7 units ACHS DIANA Administration Protocol Lisinopril 5 mg 07/01/18 10:00 Zestril PO DAILY [facility] Metoprolol Tartrate 25 mg 06/30/18 10:00 06/30/18 10:19 Lopressor PO 25 mg BID DIANA Administration - Patient Studies Lab Studies: Lab Studies 06/30/18 06/30/18 06/30/18 Range/Units 15:56 11:54 07:27 WBC (4.5-11.0) 10^3/uL RBC (3.5-6.1) 10^6/uL Hgb (14.0-18.0) g/dL Hct (42.0-52.0) % MCV (80.0-105.0) fl MCH (25.0-35.0) pg MCHC (31.0-37.0) g/dl RDW (11.5-14.5) % Plt Count (120.0-450.0) 10^3/uL MPV (7.0-11.0) fl Neut % (Auto) (50.0-68.0) % Lymph % (Auto) (22.0-35.0) % [place] % (Auto) (1.0-6.0) % Eos % (Auto) (1.5-5.0) % Baso % (Auto) (0.0-3.0) % Lymph # (Auto) (1.2-3.4) [place] # (Auto) (0.1-0.6) Eos # (Auto) (0.0-0.7) Baso # (Auto) (0.0-2.0) K/mm3 Absolute Neuts (auto) (1.4-6.5) Neutrophils % (Manual) (50.0-70.0) % Lymphocytes % (Manual) (22.0-35.0) % Monocytes % (Manual) Platelet Evaluation (NORMAL) PT (9.4-12.5) SECONDS INR APTT (26.9-38.3) Seconds Sodium (132-148) mmol/L Potassium (3.6-5.0) mmol/L Chloride (98-107) mmol/L Carbon Dioxide (21-33) mmol/L Anion Gap (10-20) BUN (7-21) mg/dL Creatinine (0.8-1.5) mg/dl Est GFR ( Amer) Est GFR (Non-Af Amer) POC Glucose (mg/dL) 317 H 332 H 359 H (65-110) mg/dL Random Glucose (70-110) mg/dL Hemoglobin A1c (4.2-6.5) % Calcium (8.4-10.5) mg/dL Phosphorus (2.5-4.5) mg/dL Magnesium (1.7-2.2) mg/dL Total Bilirubin (0.2-1.3) mg/dL AST (17-59) U/L ALT (7-56) U/L Alkaline Phosphatase (38-126) U/L Lactate Dehydrogenase (333-699) U/L Total Creatine Kinase (35-230) U/L Troponin I ng/mL Total Protein (5.8-8.3) g/dL Albumin (3.0-4.8) g/dL Globulin gm/dL Albumin/Globulin Ratio (1.1-1.8) Triglycerides (35-160) mg/dL Cholesterol (130-200) mg/dL LDL Cholesterol Direct (0-129) mg/dL HDL Cholesterol (29-60) mg/dL Blood Type Blood Type Confirm Antibody Screen BBK History Checked 06/30/18 06/30/18 06/30/18 Range/Units 05:25 05:25 00:18 WBC 9.2 D (4.5-11.0) 10^3/uL RBC 5.03 (3.5-6.1) 10^6/uL Hgb 10.7 L (14.0-18.0) g/dL Hct 35.7 L (42.0-52.0) % MCV 71.0 L (80.0-105.0) fl MCH 21.3 L (25.0-35.0) pg MCHC 30.0 L (31.0-37.0) g/dl RDW 15.7 H (11.5-14.5) % Plt Count 278 (120.0-450.0) 10^3/uL MPV 9.1 (7.0-11.0) fl Neut % (Auto) 90.7 H (50.0-68.0) % Lymph % (Auto) 8.8 L (22.0-35.0) % [place] % (Auto) 0.4 L (1.0-6.0) % Eos % (Auto) 0.0 L (1.5-5.0) % Baso % (Auto) 0.1 (0.0-3.0) % Lymph # (Auto) 0.8 L (1.2-3.4) [place] # (Auto) 0.0 L (0.1-0.6) Eos # (Auto) 0.0 (0.0-0.7) Baso # (Auto) 0.01 (0.0-2.0) K/mm3 Absolute Neuts (auto) 8.37 H (1.4-6.5) Neutrophils % (Manual) 92 H (50.0-70.0) % Lymphocytes % (Manual) 8 L (22.0-35.0) % Monocytes % (Manual) TEST NOT PERFORMED Platelet Evaluation Normal (NORMAL) PT (9.4-12.5) SECONDS INR APTT (26.9-38.3) Seconds Sodium 134 (132-148) mmol/L Potassium 4.7 (3.6-5.0) mmol/L Chloride 103 (98-107) mmol/L Carbon Dioxide 23 (21-33) mmol/L Anion Gap 13 (10-20) BUN 18 (7-21) mg/dL Creatinine 0.8 (0.8-1.5) mg/dl Est GFR ( Amer) > 60 Est GFR (Non-Af Amer) > 60 POC Glucose (mg/dL) (65-110) mg/dL Random Glucose 453 H* D (70-110) mg/dL Hemoglobin A1c (4.2-6.5) % Calcium 8.5 (8.4-10.5) mg/dL Phosphorus 3.0 (2.5-4.5) mg/dL Magnesium 1.7 (1.7-2.2) mg/dL Total Bilirubin 0.2 (0.2-1.3) mg/dL AST 69 H D (17-59) U/L ALT 48 (7-56) U/L Alkaline Phosphatase 110 (38-126) U/L Lactate Dehydrogenase (333-699) U/L Total Creatine Kinase (35-230) U/L Troponin I ng/mL Total Protein 6.7 (5.8-8.3) g/dL Albumin 3.7 (3.0-4.8) g/dL Globulin 3.1 gm/dL Albumin/Globulin Ratio 1.2 (1.1-1.8) Triglycerides (35-160) mg/dL Cholesterol (130-200) mg/dL LDL Cholesterol Direct (0-129) mg/dL HDL Cholesterol (29-60) mg/dL Blood Type Blood Type Confirm A POSITIVE Antibody Screen BBK History Checked 06/30/18 06/30/18 06/30/18 Range/Units 00:18 00:18 00:18 WBC 11.6 H (4.5-11.0) 10^3/uL RBC 5.27 (3.5-6.1) 10^6/uL Hgb 11.3 L D (14.0-18.0) g/dL Hct 37.8 L (42.0-52.0) % MCV 71.7 L (80.0-105.0) fl MCH 21.4 L (25.0-35.0) pg MCHC 29.9 L (31.0-37.0) g/dl RDW 15.9 H (11.5-14.5) % Plt Count 277 (120.0-450.0) 10^3/uL MPV 9.1 (7.0-11.0) fl Neut % (Auto) 84.3 H (50.0-68.0) % Lymph % (Auto) 11.5 L (22.0-35.0) % [place] % (Auto) 3.5 (1.0-6.0) % Eos % (Auto) 0.4 L (1.5-5.0) % Baso % (Auto) 0.3 (0.0-3.0) % Lymph # (Auto) 1.3 (1.2-3.4) [place] # (Auto) 0.4 (0.1-0.6) Eos # (Auto) 0.1 (0.0-0.7) Baso # (Auto) 0.03 (0.0-2.0) K/mm3 Absolute Neuts (auto) 9.78 H (1.4-6.5) Neutrophils % (Manual) (50.0-70.0) % Lymphocytes % (Manual) (22.0-35.0) % Monocytes % (Manual) Platelet Evaluation (NORMAL) PT (9.4-12.5) SECONDS INR APTT (26.9-38.3) Seconds Sodium 136 (132-148) mmol/L Potassium 4.2 (3.6-5.0) mmol/L Chloride 103 (98-107) mmol/L Carbon Dioxide 23 (21-33) mmol/L Anion Gap 14 (10-20) BUN 18 (7-21) mg/dL Creatinine 0.9 (0.8-1.5) mg/dl Est GFR ( Amer) > 60 Est GFR (Non-Af Amer) > 60 POC Glucose (mg/dL) (65-110) mg/dL Random Glucose 368 H* (70-110) mg/dL Hemoglobin A1c 12.8 H (4.2-6.5) % Calcium 8.7 (8.4-10.5) mg/dL Phosphorus (2.5-4.5) mg/dL Magnesium (1.7-2.2) mg/dL Total Bilirubin (0.2-1.3) mg/dL AST (17-59) U/L ALT (7-56) U/L Alkaline Phosphatase (38-126) U/L Lactate Dehydrogenase (333-699) U/L Total Creatine Kinase (35-230) U/L Troponin I ng/mL Total Protein (5.8-8.3) g/dL Albumin (3.0-4.8) g/dL Globulin gm/dL Albumin/Globulin Ratio (1.1-1.8) Triglycerides 272 H (35-160) mg/dL Cholesterol 227 H (130-200) mg/dL LDL Cholesterol Direct 155 H (0-129) mg/dL HDL Cholesterol 29 (29-60) mg/dL Blood Type Blood Type Confirm Antibody Screen BBK History Checked 06/29/18 06/29/18 06/29/18 Range/Units 22:33 21:30 21:30 WBC (4.5-11.0) 10^3/uL RBC (3.5-6.1) 10^6/uL Hgb (14.0-18.0) g/dL Hct (42.0-52.0) % MCV (80.0-105.0) fl MCH (25.0-35.0) pg MCHC (31.0-37.0) g/dl RDW (11.5-14.5) % Plt Count (120.0-450.0) 10^3/uL MPV (7.0-11.0) fl Neut % (Auto) (50.0-68.0) % Lymph % (Auto) (22.0-35.0) % [place] % (Auto) (1.0-6.0) % Eos % (Auto) (1.5-5.0) % Baso % (Auto) (0.0-3.0) % Lymph # (Auto) (1.2-3.4) [place] # (Auto) (0.1-0.6) Eos # (Auto) (0.0-0.7) Baso # (Auto) (0.0-2.0) K/mm3 Absolute Neuts (auto) (1.4-6.5) Neutrophils % (Manual) (50.0-70.0) % Lymphocytes % (Manual) (22.0-35.0) % Monocytes % (Manual) Platelet Evaluation (NORMAL) PT 16.4 H (9.4-12.5) SECONDS INR 1.48 APTT 29.7 (26.9-38.3) Seconds Sodium 137 (132-148) mmol/L Potassium 2.3 L* (3.6-5.0) mmol/L Chloride 114 H (98-107) mmol/L Carbon Dioxide 16 L (21-33) mmol/L Anion Gap 9 L (10-20) BUN 14 (7-21) mg/dL Creatinine 0.7 L (0.8-1.5) mg/dl Est GFR ( Amer) > 60 Est GFR (Non-Af Amer) > 60 POC Glucose (mg/dL) (65-110) mg/dL Random Glucose 318 H* (70-110) mg/dL Hemoglobin A1c (4.2-6.5) % Calcium 5.9 L* (8.4-10.5) mg/dL Phosphorus (2.5-4.5) mg/dL Magnesium (1.7-2.2) mg/dL Total Bilirubin < 0.1 L (0.2-1.3) mg/dL AST 31 (17-59) U/L ALT 38 (7-56) U/L Alkaline Phosphatase 70 (38-126) U/L Lactate Dehydrogenase 348 (333-699) U/L Total Creatine Kinase 39 (35-230) U/L Troponin I 5.21 H* ng/mL Total Protein 4.8 L (5.8-8.3) g/dL Albumin 2.4 L (3.0-4.8) g/dL Globulin 2.4 gm/dL Albumin/Globulin Ratio 1.0 L (1.1-1.8) Triglycerides (35-160) mg/dL Cholesterol (130-200) mg/dL LDL Cholesterol Direct (0-129) mg/dL HDL Cholesterol (29-60) mg/dL Blood Type A POSITIVE Blood Type Confirm Antibody Screen Negative BBK History Checked No verified bt 06/29/18 Range/Units 21:30 WBC 9.7 (4.5-11.0) 10^3/uL RBC 4.15 (3.5-6.1) 10^6/uL Hgb 8.9 L (14.0-18.0) g/dL Hct 29.6 L (42.0-52.0) % MCV 71.3 L (80.0-105.0) fl MCH 21.4 L (25.0-35.0) pg MCHC 30.1 L (31.0-37.0) g/dl RDW 15.8 H (11.5-14.5) % Plt Count 252 (120.0-450.0) 10^3/uL MPV 9.0 (7.0-11.0) fl Neut % (Auto) 62.3 (50.0-68.0) % Lymph % (Auto) 29.0 (22.0-35.0) % [place] % (Auto) 5.8 (1.0-6.0) % Eos % (Auto) 2.4 (1.5-5.0) % Baso % (Auto) 0.5 (0.0-3.0) % Lymph # (Auto) 2.8 (1.2-3.4) [place] # (Auto) 0.6 (0.1-0.6) Eos # (Auto) 0.2 (0.0-0.7) Baso # (Auto) 0.05 (0.0-2.0) K/mm3 Absolute Neuts (auto) 6.01 (1.4-6.5) Neutrophils % (Manual) (50.0-70.0) % Lymphocytes % (Manual) (22.0-35.0) % Monocytes % (Manual) Platelet Evaluation (NORMAL) PT (9.4-12.5) SECONDS INR APTT (26.9-38.3) Seconds Sodium (132-148) mmol/L Potassium (3.6-5.0) mmol/L Chloride (98-107) mmol/L Carbon Dioxide (21-33) mmol/L Anion Gap (10-20) BUN (7-21) mg/dL Creatinine (0.8-1.5) mg/dl Est GFR ( Amer) Est GFR (Non-Af Amer) POC Glucose (mg/dL) (65-110) mg/dL Random Glucose (70-110) mg/dL Hemoglobin A1c (4.2-6.5) % Calcium (8.4-10.5) mg/dL Phosphorus (2.5-4.5) mg/dL Magnesium (1.7-2.2) mg/dL Total Bilirubin (0.2-1.3) mg/dL AST (17-59) U/L ALT (7-56) U/L Alkaline Phosphatase (38-126) U/L Lactate Dehydrogenase (333-699) U/L Total Creatine Kinase (35-230) U/L Troponin I ng/mL Total Protein (5.8-8.3) g/dL Albumin (3.0-4.8) g/dL Globulin gm/dL Albumin/Globulin Ratio (1.1-1.8) Triglycerides (35-160) mg/dL Cholesterol (130-200) mg/dL LDL Cholesterol Direct (0-129) mg/dL HDL Cholesterol (29-60) mg/dL Blood Type Blood Type Confirm Antibody Screen BBK History Checked Laboratory Results - last 24 hr 06/29/18 06/29/18 06/29/18 21:30 21:30 21:30 WBC 9.7 RBC 4.15 Hgb 8.9 L Hct 29.6 L MCV 71.3 L MCH 21.4 L MCHC 30.1 L RDW 15.8 H Plt Count 252 MPV 9.0 Neut % (Auto) 62.3 Lymph % (Auto) 29.0 [place] % (Auto) 5.8 Eos % (Auto) 2.4 Baso % (Auto) 0.5 Lymph # (Auto) 2.8 [place] # (Auto) 0.6 Eos # (Auto) 0.2 Baso # (Auto) 0.05 Absolute Neuts (auto) 6.01 Neutrophils % (Manual) Lymphocytes % (Manual) Monocytes % (Manual) Platelet Evaluation PT 16.4 H INR 1.48 APTT 29.7 Sodium 137 Potassium 2.3 L* Chloride 114 H Carbon Dioxide 16 L Anion Gap 9 L BUN 14 Creatinine 0.7 L Est GFR ( Amer) > 60 Est GFR (Non-Af Amer) > 60 POC Glucose (mg/dL) Random Glucose 318 H* Hemoglobin A1c Calcium 5.9 L* Phosphorus Magnesium Total Bilirubin < 0.1 L AST 31 ALT 38 Alkaline Phosphatase 70 Lactate Dehydrogenase 348 Total Creatine Kinase 39 Troponin I 5.21 H* Total Protein 4.8 L Albumin 2.4 L Globulin 2.4 Albumin/Globulin Ratio 1.0 L Triglycerides Cholesterol LDL Cholesterol Direct HDL Cholesterol Blood Type Blood Type Confirm Antibody Screen BBK History Checked 06/29/18 06/30/18 06/30/18 22:33 00:18 00:18 WBC 11.6 H RBC 5.27 Hgb 11.3 L D Hct 37.8 L MCV 71.7 L MCH 21.4 L MCHC 29.9 L RDW 15.9 H Plt Count 277 MPV 9.1 Neut % (Auto) 84.3 H Lymph % (Auto) 11.5 L [place] % (Auto) 3.5 Eos % (Auto) 0.4 L Baso % (Auto) 0.3 Lymph # (Auto) 1.3 [place] # (Auto) 0.4 Eos # (Auto) 0.1 Baso # (Auto) 0.03 Absolute Neuts (auto) 9.78 H Neutrophils % (Manual) Lymphocytes % (Manual) Monocytes % (Manual) Platelet Evaluation PT INR APTT Sodium 136 Potassium 4.2 Chloride 103 Carbon Dioxide 23 Anion Gap 14 BUN 18 Creatinine 0.9 Est GFR ( Amer) > 60 Est GFR (Non-Af Amer) > 60 POC Glucose (mg/dL) Random Glucose 368 H* Hemoglobin A1c Calcium 8.7 Phosphorus Magnesium Total Bilirubin AST ALT Alkaline Phosphatase Lactate Dehydrogenase Total Creatine Kinase Troponin I Total Protein Albumin Globulin Albumin/Globulin Ratio Triglycerides 272 H Cholesterol 227 H LDL Cholesterol Direct 155 H HDL Cholesterol 29 Blood Type A POSITIVE Blood Type Confirm Antibody Screen Negative BBK History Checked No verified bt 06/30/18 06/30/18 06/30/18 00:18 00:18 05:25 WBC 9.2 D RBC 5.03 Hgb 10.7 L Hct 35.7 L MCV 71.0 L MCH 21.3 L MCHC 30.0 L RDW 15.7 H Plt Count 278 MPV 9.1 Neut % (Auto) 90.7 H Lymph % (Auto) 8.8 L [place] % (Auto) 0.4 L Eos % (Auto) 0.0 L Baso % (Auto) 0.1 Lymph # (Auto) 0.8 L [place] # (Auto) 0.0 L Eos # (Auto) 0.0 Baso # (Auto) 0.01 Absolute Neuts (auto) 8.37 H Neutrophils % (Manual) 92 H Lymphocytes % (Manual) 8 L Monocytes % (Manual) TEST NOT PERFORMED Platelet Evaluation Normal PT INR APTT Sodium Potassium Chloride Carbon Dioxide Anion Gap BUN Creatinine Est GFR ( Amer) Est GFR (Non-Af Amer) POC Glucose (mg/dL) Random Glucose Hemoglobin A1c 12.8 H Calcium Phosphorus Magnesium Total Bilirubin AST ALT Alkaline Phosphatase Lactate Dehydrogenase Total Creatine Kinase Troponin I Total Protein Albumin Globulin Albumin/Globulin Ratio Triglycerides Cholesterol LDL Cholesterol Direct HDL Cholesterol Blood Type Blood Type Confirm A POSITIVE Antibody Screen BBK History Checked 06/30/18 06/30/18 06/30/18 05:25 07:27 11:54 WBC RBC Hgb Hct MCV MCH MCHC RDW Plt Count MPV Neut % (Auto) Lymph % (Auto) [place] % (Auto) Eos % (Auto) Baso % (Auto) Lymph # (Auto) [place] # (Auto) Eos # (Auto) Baso # (Auto) Absolute Neuts (auto) Neutrophils % (Manual) Lymphocytes % (Manual) Monocytes % (Manual) Platelet Evaluation PT INR APTT Sodium 134 Potassium 4.7 Chloride 103 Carbon Dioxide 23 Anion Gap 13 BUN 18 Creatinine 0.8 Est GFR ( Amer) > 60 Est GFR (Non-Af Amer) > 60 POC Glucose (mg/dL) 359 H 332 H Random Glucose 453 H* D Hemoglobin A1c Calcium 8.5 Phosphorus 3.0 Magnesium 1.7 Total Bilirubin 0.2 AST 69 H D ALT 48 Alkaline Phosphatase 110 Lactate Dehydrogenase Total Creatine Kinase Troponin I Total Protein 6.7 Albumin 3.7 Globulin 3.1 Albumin/Globulin Ratio 1.2 Triglycerides Cholesterol LDL Cholesterol Direct HDL Cholesterol Blood Type Blood Type Confirm Antibody Screen BBK History Checked 06/30/18 15:56 WBC RBC Hgb Hct MCV MCH MCHC RDW Plt Count MPV Neut % (Auto) Lymph % (Auto) [place] % (Auto) Eos % (Auto) Baso % (Auto) Lymph # (Auto) [place] # (Auto) Eos # (Auto) Baso # (Auto) Absolute Neuts (auto) Neutrophils % (Manual) Lymphocytes % (Manual) Monocytes % (Manual) Platelet Evaluation PT INR APTT Sodium Potassium Chloride Carbon Dioxide Anion Gap BUN Creatinine Est GFR ( Amer) Est GFR (Non-Af Amer) POC Glucose (mg/dL) 317 H Random Glucose Hemoglobin A1c Calcium Phosphorus Magnesium Total Bilirubin AST ALT Alkaline Phosphatase Lactate Dehydrogenase Total Creatine Kinase Troponin I Total Protein Albumin Globulin Albumin/Globulin Ratio Triglycerides Cholesterol LDL Cholesterol Direct HDL Cholesterol Blood Type Blood Type Confirm Antibody Screen BBK History Checked Radiology Impressions: Radiology Impressions Chest X-Ray 06/29/18 21:39 IMPRESSION: Cardiomegaly. No pulmonary vascular congestion. No infiltrates bilaterally. EKG/Cardiology Studies: Cardiology / EKG Studies 06/29/18 21:39 ELECTROCARDIOGRAM Stat Comment: Reason For Exam: cp 06/29/18 23:23 ELECTROCARDIOGRAM Urgent Comment: 12 lead EKG upon arrival in unit Reason For Exam: post ptca 06/30/18 23:30 ELECTROCARDIOGRAM DAILY Comment: Reason For Exam: chest pain Critical Care Progress Note - Nutrition Nutrition: Nutrition Category Date Time Status Consistent Carbohydrate [DIET] Diets 06/29/18 Breakfast Ordered Attending/Attestation - Attestation I have personally seen and examined this patient.: Yes I have fully participated in the care of the patient.: Yes I have reviewed all pertinent clinical information: Yes Notes (Text): 06/30/18 17:01 62 yo male with STEMI s/p code heart with 4 stents placement. doing well. no chest pain. cont DAP, bb, statins, ACEI. ok to downgrade to tele
--- NOTE | 2018-06-30 17:14 | HP ---
DATE OF EXAM: 06/30/2018 HISTORY OF PRESENT ILLNESS: The patient was seen and examined. I do agree with the note of the medical language specialist. The patient is a 62-year-old male who came in to the hospital and was found to have ST segment elevation. He was taken to the warehouse general laborer and had 3 stents that were placed by Dr. Roblero. I did speak with Dr. Roblero regarding the case. He had a history of diabetes and dyslipidemia. He is a smoker. He initially was found to be in detox by EMS. Initially, he was thought to have a low hemoglobin, because his hemoglobin was 8.9. Repeat blood work shows the hemoglobin that was in error. The hemoglobin was 11.3. He has a history of hemorrhoids. The patient had troponin initially that was 5.2. He had EKG changes that showed ST segment elevations. I did speak to the patient's at the bedside. He is currently chest pain free. He has no complaints of any headaches or dizziness. He is receiving his medications with Lipitor for his dyslipidemia. He is on amiodarone. He is going to continue with aspirin. He is on beta blockers with metoprolol. The patient is also on Plavix. He will need further intervention by Dr. Roblero in the next few weeks. I did speak to Dr. Avina, the patient's primary care doctor to give him an update. Tremayne Larsen MD
[2018-07-01 03:10] VITALS: BP 104/66; TEMP 99
[2018-07-01 06:40] VITALS: RESP 23; O2SAT 95
[2018-07-01 06:53] LABS: BASO # 0.05 K/mm3 (0.0-2.0); BASO % 0.4 % (0.0-3.0); EOS # 0.1 (0.0-0.7); EOS % 1.2 % (1.5-5.0); HEMOGLOBIN 10.3 g/dL (14.0-18.0); LYMPH # 3.4 (1.2-3.4); LYMPH % 27.9 % (22.0-35.0); MEAN CELL VOLUME 71.6 fl (80.0-105.0); MEAN CORPUSCULAR HEMOGLOBIN 20.9 pg (25.0-35.0); MEAN CORPUSCULAR HGB CONC 29.2 g/dl (31.0-37.0); MEAN PLATELET VOLUME 9.4 fl (7.0-11.0); MONO # 0.7 (0.1-0.6); MONO % 6.1 % (1.0-6.0); RBC 4.93 10^6/uL (3.5-6.1); RED CELL DISTRIBUTION WIDTH 15.9 % (11.5-14.5)
[2018-07-01 07:38] LABS: ALB/GLOB RATIO 1.2 (1.1-1.8); ALBUMIN 3.7 g/dL (3.0-4.8); ALT/SGPT 42 U/L (7-56); AST/SGOT 44 U/L (17-59); BLOOD UREA NITROGEN 18 mg/dL (7-21); CALCIUM 8.8 mg/dL (8.4-10.5); GFR NON-AFRICAN AMERICAN > 60
[2018-07-01] MEDS: Insulin Regular 1 UNITS/0.01 ML ML SC SCH (08:50)
--- NOTE | 2018-07-01 09:19 | CARD ---
APPROVED REPORT Date of service: 06/30/2018 EKG Measurement Heart [id number] <Conclusion> Normal sinus rhythm Left axis deviation Inferior infarct, age undetermined Anteroseptal infarct, age undetermined Abnormal ECG
--- NOTE | 2018-07-01 10:15 | CARD ---
APPROVED REPORT Date of service: 07/01/2018 EKG Measurement Heart [id number] <Conclusion> Poor data quality, interpretation may be adversely affected Normal sinus rhythm Left axis deviation Inferior infarct, age Old. Anteroseptal infarct, age Old. Abnormal ECG
[2018-07-01 11:41] LABS: IRON 15 ug/dL (45-180)
--- NOTE | 2018-07-01 11:46 | CP.PCM.DIS ---
Provider - Provider Date of Admission: 06/29/18 23:29 Attending physician: Tremayne Larsen MD Consults: 06/30/18 04:28 Inpatient H[employer]ED [employer]ARPER TENDER Core Measures Referral Routine Comment: Physician Instructions: Reason For Exam: Please evaluate pt. Transition In Care/Readmission Reduction Routine Comment: Physician Instructions: Reason For Exam: Please evaluate pt. Time Spent in preparation of Discharge (in minutes): 45 Hospital Course - Lab Results Lab Results: Most Recent Lab Values WBC 12.0 10^3/uL (4.5-11.0) H D 07/01/18 05:25 RBC 4.93 10^6/uL (3.5-6.1) 07/01/18 05:25 Hgb 10.3 g/dL (14.0-18.0) L 07/01/18 05:25 Hct 35.3 % (42.0-52.0) L 07/01/18 05:25 MCV 71.6 fl (80.0-105.0) L 07/01/18 05:25 MCH 20.9 pg (25.0-35.0) L 07/01/18 05:25 MCHC 29.2 g/dl (31.0-37.0) L 07/01/18 05:25 RDW 15.9 % (11.5-14.5) H 07/01/18 05:25 Plt Count 288 10^3/uL (120.0-450.0) 07/01/18 05:25 MPV 9.4 fl (7.0-11.0) 07/01/18 05:25 Neut % (Auto) 64.4 % (50.0-68.0) 07/01/18 05:25 Lymph % (Auto) 27.9 % (22.0-35.0) 07/01/18 05:25 [place] % (Auto) 6.1 % (1.0-6.0) H 07/01/18 05:25 Eos % (Auto) 1.2 % (1.5-5.0) L 07/01/18 05:25 Baso % (Auto) 0.4 % (0.0-3.0) 07/01/18 05:25 Lymph # (Auto) 3.4 (1.2-3.4) 07/01/18 05:25 [place] # (Auto) 0.7 (0.1-0.6) H 07/01/18 05:25 Eos # (Auto) 0.1 (0.0-0.7) 07/01/18 05:25 Baso # (Auto) 0.05 K/mm3 (0.0-2.0) 07/01/18 05:25 Absolute Neuts (auto) 7.72 (1.4-6.5) H 07/01/18 05:25 Neutrophils % (Manual) 92 % (50.0-70.0) H 06/30/18 05:25 Lymphocytes % (Manual) 8 % (22.0-35.0) L 06/30/18 05:25 Monocytes % (Manual) TEST NOT PERFORMED 06/30/18 05:25 Platelet Evaluation Normal (NORMAL) 06/30/18 05:25 PT 16.4 SECONDS (9.4-12.5) H 06/29/18 21:30 INR 1.48 06/29/18 21:30 APTT 29.7 Seconds (26.9-38.3) 06/29/18 21:30 Sodium 137 mmol/L (132-148) 07/01/18 05:25 Potassium 4.4 mmol/L (3.6-5.0) 07/01/18 05:25 Chloride 101 mmol/L (98-107) 07/01/18 05:25 Carbon Dioxide 30 mmol/L (21-33) 07/01/18 05:25 Anion Gap 10 (10-20) 07/01/18 05:25 BUN 18 mg/dL (7-21) 07/01/18 05:25 Creatinine 0.9 mg/dl (0.8-1.5) 07/01/18 05:25 Est GFR ( Amer) > 60 07/01/18 05:25 Est GFR (Non-Af Amer) > 60 07/01/18 05:25 POC Glucose (mg/dL) 286 mg/dL (65-110) H 07/01/18 07:30 Random Glucose 312 mg/dL (70-110) H* D 07/01/18 05:25 Hemoglobin A1c 12.8 % (4.2-6.5) H 06/30/18 00:18 Calcium 8.8 mg/dL (8.4-10.5) 07/01/18 05:25 Phosphorus 3.0 mg/dL (2.5-4.5) 06/30/18 05:25 Magnesium 1.7 mg/dL (1.7-2.2) 06/30/18 05:25 Iron 15 ug/dL (45-180) L 07/01/18 11:15 Total Bilirubin 0.3 mg/dL (0.2-1.3) 07/01/18 05:25 AST 44 U/L (17-59) 07/01/18 05:25 ALT 42 U/L (7-56) 07/01/18 05:25 Alkaline Phosphatase 97 U/L (38-126) 07/01/18 05:25 Lactate Dehydrogenase 348 U/L (333-699) 06/29/18 21:30 Total Creatine Kinase 39 U/L (35-230) 06/29/18 21:30 Troponin I 5.21 ng/mL H* 06/29/18 21:30 Total Protein 6.9 g/dL (5.8-8.3) 07/01/18 05:25 Albumin 3.7 g/dL (3.0-4.8) 07/01/18 05:25 Globulin 3.1 gm/dL 07/01/18 05:25 Albumin/Globulin Ratio 1.2 (1.1-1.8) 07/01/18 05:25 Triglycerides 272 mg/dL (35-160) H 06/30/18 00:18 Cholesterol 227 mg/dL (130-200) H 06/30/18 00:18 LDL Cholesterol Direct 155 mg/dL (0-129) H 06/30/18 00:18 HDL Cholesterol 29 mg/dL (29-60) 06/30/18 00:18 Blood Type A POSITIVE 06/29/18 22:33 Blood Type Confirm A POSITIVE 06/30/18 00:18 Antibody Screen Negative 06/29/18 22:33 BBK History Checked No verified bt 06/29/18 22:33 - Hospital Course Hospital Course: 62-year-old male with past medical history of hyperlipidemia, diabetes mellitus, hiatal hernia, and active smoker presents to the emergency room with dizziness, and episode of diaphoresis with mild chest pain. In the emergency room patient was noted to have STEMI on the EKG, code heart was called and patient was taken for emergency cardiac catheterization, with 3 drug-eluting stents placed. Chest x-ray showed cardiomegaly. Troponin 5.47. Patient was admitted to the ICU for close monitoring. He was started on aspirin, Plavix, amiodarone, and metoprolol. Patient's was also hypokalemia and Hypocalcemia which were replenished and resolved. Today the patient states that he is doing well. Denies any chest pain or shortness of breath. Patient was educated regarding always taking his aspirin and Plavix. Patient is to follow-up with his medical doctor and membership sales manager as an outpatient within the week. All questions answered. 1. Acute myocardial infarction s/p cardiac catheterization with 3 stent placement 2. Hypokalemia, now resolved 3. Hypocalcemia, now resolved 4. Hyperlipidemia 5. Diabetes mellitus, non-insulin requiring 6. Active smoker 7. Hiatal hernia 8. Elevated BMI Discharge Exam - Head Exam Head Exam: ATRAUMATIC, NORMOCEPHALIC - Eye Exam Eye Exam: EOMI, PERRL - Respiratory Exam Respiratory Exam: Clear to PA & Lateral. absent: Rales, Rhonchi, Wheezes - Cardiovascular Exam Cardiovascular Exam: REGULAR RHYTHM, +S1, +S2 - GI/Abdominal Exam GI & Abdominal Exam: Normal Bowel Sounds, Soft. absent: Distended, Tenderness - Neurological Exam Neurological exam: Alert, Oriented x3 - Psychiatric Exam Psychiatric exam: Normal Mood - Skin Skin Exam: Dry, Normal Color Discharge Plan - Discharge Medications Prescriptions: Amiodarone [Cordarone] 400 mg PO BID #60 tab Atorvastatin [Lipitor] 40 mg PO DIN #30 tab Clopidogrel [Plavix] 75 mg PO DAILY #30 tab Lisinopril [Zestril] 5 mg PO DAILY #30 tab Metoprolol Tartrate [Lopressor] 25 mg PO BID #60 tab - Follow Up Plan Condition: IMPROVED Disposition: HOME/ ROUTINE Patient education suggested?: Yes Additional Instructions: Follow-up with your PMD within 3 days Follow-up with cardiology within 1 week If your symptoms recur come back to the ED Educated regarding the importance of always taking his aspirin and Plavix. Continue with the metoprolol, lisinopril, and amiodarone. Referrals: Barry Roblero MD [Staff Provider] -
[2018-07-01 11:50] LABS: % IRON SATURATION 4 % (20-55); TOTAL IRON BINDING CAPACITY 357 ug/dL (261-462)
[2018-07-01 12:39] VITALS: PULSE 78
--- NOTE | 2018-07-01 13:26 | PN ---
DATE: 07/01/2018 SUBJECTIVE: The patient is chest pain free. He is ambulating on the floor. I had brought the patient to the stress lab where we exercised him to the end of stage II. There were no arrhythmias noted. No chest pain noted. PHYSICAL EXAMINATION: VITAL SIGNS: Stable. NECK: Negative JVD. LUNGS: Without rales. HEART: S1, S2. EXTREMITIES: Without edema. LABORATORY DATA: Hemoglobin is 10.3. Chemistries, the potassium is 4.4. The glucose is 312. IMPRESSION: 1. Status post code heart emergency percutaneous transluminal coronary angioplasty and stent of an acute inferior wall myocardial infarction complicated by ventricular tachycardia. 2. Diabetes mellitus. 3. Multivessel coronary artery disease. 4. Ischemic dilated cardiomyopathy. 5. Diabetes mellitus. 6. Nicotine addiction. 7. Morbidly obese. PLAN: Given these findings, the patient can be discharged today. We will continue him on amiodarone, aspirin. We will continue him on metformin. I have discussed with the patient about a cardiac risk reduction program. We will bring him back in 7 to 10 days for PTCA and stent of an occluded LAD. Barry Roblero MD
== END 2018-07-01 13:00 | disposition home or self-care (01) | DRG 247 ==
LOC: ED 21:20 → ERH 23:29 → ICU 23:47
PROVIDERS: ADMIT Internal Medicine Nephrology; ATTEND Internal Medicine Nephrology
PROC: 027136Z Dilation of Coronary Artery, Two Arteries with Three Drug-eluting Intraluminal Devices, Percutaneous Approach (ICD-10-PCS; principal; 2018-06-29)
PROC: 4A023N7 Measurement of Cardiac Sampling and Pressure, Left Heart, Percutaneous Approach (ICD-10-PCS; 2018-06-29)
PROC: B2111ZZ Fluoroscopy of Multiple Coronary Arteries using Low Osmolar Contrast (ICD-10-PCS; 2018-06-29)
PROC: 3E033PZ Introduction of Platelet Inhibitor into Peripheral Vein, Percutaneous Approach (ICD-10-PCS; 2018-06-29)
DX: I21.09 ST elevation (STEMI) myocardial infarction involving other coronary artery of anterior wall (principal); I42.0 Dilated cardiomyopathy; I47.2 Ventricular tachycardia; Z68.41 Body mass index [BMI] 40.0-44.9, adult; I21.19 ST elevation (STEMI) myocardial infarction involving other coronary artery of inferior wall; I25.10 Atherosclerotic heart disease of native coronary artery without angina pectoris; I25.5 Ischemic cardiomyopathy; K21.9 Gastro-esophageal reflux disease without esophagitis; K44.9 Diaphragmatic hernia without obstruction or gangrene; Z79.02 Long term (current) use of antithrombotics/antiplatelets; E78.5 Hyperlipidemia, unspecified; E83.51 Hypocalcemia; E87.6 Hypokalemia; E78.00 Pure hypercholesterolemia, unspecified; E11.9 Type 2 diabetes mellitus without complications; D64.9 Anemia, unspecified; E66.01 Morbid (severe) obesity due to excess calories; G47.30 Sleep apnea, unspecified; F17.210 Nicotine dependence, cigarettes, uncomplicated; Z83.3 Family history of diabetes mellitus; Z91.14 Patient's other noncompliance with medication regimen; Z91.013 Allergy to seafood

== ENCOUNTER 2018-07-05 06:02 | Day surgery (SDC) | payer BC ==
[2018-07-02 09:36] VITALS: BMI 41.4
[2018-07-05] MEDS ORDERED: Iohexol 350mgl/ml 50 ML ONE (07:07)
[2018-07-05] MEDS ORDERED: Iodixanol 320 MG/ML 200 ML BOTTLE IV ONE (07:07)
[2018-07-05] MEDS ORDERED: Lidocaine PF 2% (5 ml) Inj (For Cardiac Arrhy) ONE (07:07)
[2018-07-05] MEDS ORDERED: Iodixanol 320 MG/ML 100 ML BOTTLE IV ONE (07:07)
[2018-07-05] MEDS ORDERED: Nitroglycerin 50mg in D5W 0 MG/0 ML BOTTLE IV ONE (07:08)
[2018-07-05 07:09] LABS: BASO # 0.04 {null, K/mm3} (0.0-2.0); BASO % 0.4 % (0.0-3.0); EOS # 0.3 (0.0-0.7); EOS % 2.9 % (1.5-5.0); HEMOGLOBIN 10.5 g/dL (14.0-18.0); LYMPH # 2.4 (1.2-3.4); LYMPH % 22.9 % (22.0-35.0); MEAN CELL VOLUME 71.4 fl (80.0-105.0); MEAN CORPUSCULAR HEMOGLOBIN 21.2 pg (25.0-35.0); MEAN CORPUSCULAR HGB CONC 29.7 g/dl (31.0-37.0); MEAN PLATELET VOLUME 9.4 fl (7.0-11.0); MONO # 0.6 (0.1-0.6); MONO % 5.9 % (1.0-6.0); RBC 4.96 {null, 10^6/uL} (3.5-6.1); RED CELL DISTRIBUTION WIDTH 15.9 % (11.5-14.5); WHITE BLOOD COUNT 10.3 {null, 10^3/uL} (4.5-11.0)
[2018-07-05] MEDS ORDERED: Famotidine 20mg/50ml 20 MG/50 ML BAG IVPB ONE (07:18)
[2018-07-05] MEDS ORDERED: DiphenhydrAMINE 50 mg/ml Inj ONE (07:18)
[2018-07-05 07:20] LABS: INR 1.2; PARTIAL THROMBOPLASTIN TIME 35.9 Seconds (26.9-38.3); PROTHROMBIN TIME 13.6 SECONDS (9.4-12.5)
[2018-07-05 07:32] LABS: BLOOD UREA NITROGEN 18 mg/dL (7-21); CALCIUM 8.7 mg/dL (8.4-10.5); GFR NON-AFRICAN AMERICAN > 60
[2018-07-05] MEDS ORDERED: Midazolam 2 MG/2 ML VIAL ONE (08:08)
[2018-07-05] MEDS ORDERED: Iodixanol 320 mg/ml 150 ml Bottle IV ONE (08:51)
[2018-07-05] MEDS ORDERED: Sodium Chloride 0.9% 1,000 ML IV SCH (09:30)
--- NOTE | 2018-07-05 12:31 | CP.PCM.HP ---
<Cait Elizondo - Last Filed: 07/05/18 13:48> History of Present Illness - History of Present Illness History of Present Illness: Cait Elizondo, PGY2, H&P for Dr Larsen: This is a 62 year old male with past medical history of hyperlipidemia, diabetes mellitus, hiatal hernia, and active smoker, came to [facility] for a scheduled cardiac cath with Dr Roblero. Patient previously was admitted to [facility] recently from 06/29 to 07/01 for STEMI, code heart called, placed 3 drug eluting stents with emergent cardiac cath. Patient discharged home on Aspirin, plavix, lipitor, metoprolol and lisinopril. At the time of my assessment, the patient is post cath, denies any chest pain, nausea, vomiting, bleeding at the cath site, headache, abdominal pain, dizziness, fevers, chills. 12 point ROS obtained and negative, except as per HPI. PMH: As above PSH: Denies FH: Mother with diabetes, father due to idiopathic pulmonary fibrosis, grandfather passed from an CO Medications: Refer to [facility] Allergies: Shellfish SH: Active smoker of just less than 1 pack/day for 15 years, denies any alcohol or recreational drug use Present on Admission - Present on Admission Any Indicators Present on Admission: No History of DVT/PE: No History of Uncontrolled Diabetes: No Urinary Catheter: No Decubitus Ulcer Present: No Review of Systems - Review of Systems All systems: reviewed and no additional remarkable complaints except Review of Systems: as per HPI Past Patient History - Past Social History Smoking Status: Current Some Days Smoker - CARDIAC Hx Pacemaker: No - PULMONARY Hx Respiratory Disorders: Yes (Occasional cough.) Hx Sleep Apnea: Yes (Does not use mask at home.) - NEUROLOGICAL Hx Neurological Disorder: Yes Hx Dizziness: Yes (c/o dizziness at home; 06/29/18.) - HEENT Hx HEENT Problems: No - RENAL Hx Chronic Kidney Disease: No - ENDOCRINE/METABOLIC Hx Diabetes Mellitus Type 2: Yes - HEMATOLOGICAL/ONCOLOGICAL Hx Blood Transfusions: No - INTEGUMENTARY Hx Dermatological Problems: No - MUSCULOSKELETAL/RHEUMATOLOGICAL Hx Musculoskeletal Disorders: Yes - GASTROINTESTINAL Hx Gastroesophageal Reflux: Yes - GENITOURINARY/GYNECOLOGICAL Hx Genitourinary Disorders: No - PSYCHIATRIC Hx Emotional Abuse: No Hx Physical Abuse: No Hx Substance Use: No - SURGICAL HISTORY Hx Surgeries: No (POLYPECTOMY-ANAL FISSURE, PTCA WITH 3 STENTS 06/2018 ) - ANESTHESIA Hx Anesthesia Reactions: No Hx Malignant Hyperthermia: No Meds Allergies/Adverse Reactions: Allergies Allergy/AdvReac Type Severity Reaction Status Date / Time shellfish derived Allergy RASH Verified 06/29/18 21:37 Physical Exam - Constitutional Appears: Non-toxic, No Acute Distress - Head Exam Head Exam: ATRAUMATIC, NORMOCEPHALIC - Eye Exam Eye Exam: EOMI, PERRL. absent: Conjunctival injection, Nystagmus, Scleral icterus Pupil Exam: NORMAL ACCOMODATION, PERRL. absent: Irregular, Miosis, Mydriatic, Unequal - ENT Exam ENT Exam: Mucous Membranes Moist - Neck Exam Neck exam: Positive for: Full Rom - Respiratory Exam Respiratory Exam: Clear to Auscultation Bilateral, NORMAL BREATHING PATTERN. absent: Accessory Muscle Use, Chest Wall Tenderness, Wheezes, Respiratory Distress, Stridor - Cardiovascular Exam Cardiovascular Exam: RRR, +S1, +S2. absent: Systolic Murmur - GI/Abdominal Exam GI & Abdominal Exam: Normal Bowel Sounds, Soft. absent: Firm, Guarding, Pulsatile Mass, Rebound, Rigid Additional comments: + morbidly obese + left groin site dressing clean, dry, intact. No bleeding/hematoma noted - Extremities Exam Extremities exam: Positive for: normal inspection. Negative for: calf tenderness, pedal edema - Back Exam Back exam: NORMAL INSPECTION - Neurological Exam Neurological exam: Alert, Oriented x3 - Psychiatric Exam Psychiatric exam: Normal Affect, Normal Mood - Skin Skin Exam: Dry, Normal Color, Warm Results - Vital Signs Recent Vital Signs: Last Vital Signs Temp 97.9 F 07/05/18 09:40 Pulse 62 07/05/18 11:25 Resp 18 07/05/18 11:25 BP 106/62 07/05/18 11:25 Pulse Ox 94 L 07/05/18 06:39 - Labs Result Diagrams: 07/05/18 06:35 07/05/18 06:35 Labs: Laboratory Results - last 24 hr 07/05/18 07/05/18 07/05/18 06:35 06:35 06:35 WBC 10.3 RBC 4.96 Hgb 10.5 L Hct 35.4 L MCV 71.4 L MCH 21.2 L MCHC 29.7 L RDW 15.9 H Plt Count 324 MPV 9.4 Neut % (Auto) 67.9 Lymph % (Auto) 22.9 [place] % (Auto) 5.9 Eos % (Auto) 2.9 Baso % (Auto) 0.4 Lymph # (Auto) 2.4 [place] # (Auto) 0.6 Eos # (Auto) 0.3 Baso # (Auto) 0.04 Absolute Neuts (auto) 6.98 H PT 13.6 H INR 1.20 APTT 35.9 Sodium 137 Potassium 4.3 Chloride 102 Carbon Dioxide 28 Anion Gap 11 BUN 18 Creatinine 0.9 Est GFR ( Amer) > 60 Est GFR (Non-Af Amer) > 60 POC Glucose (mg/dL) Random Glucose 260 H Calcium 8.7 Blood Type Antibody Screen BBK History Checked 07/05/18 07/05/18 06:35 11:49 WBC RBC Hgb Hct MCV MCH MCHC RDW Plt Count MPV Neut % (Auto) Lymph % (Auto) [place] % (Auto) Eos % (Auto) Baso % (Auto) Lymph # (Auto) [place] # (Auto) Eos # (Auto) Baso # (Auto) Absolute Neuts (auto) PT INR APTT Sodium Potassium Chloride Carbon Dioxide Anion Gap BUN Creatinine Est GFR ( Amer) Est GFR (Non-Af Amer) POC Glucose (mg/dL) 297 H Random Glucose Calcium Blood Type A POSITIVE Antibody Screen Negative BBK History Checked Patient has bt Assessment & Plan - Assessment and Plan (Free Text) Assessment: 1. S/p cardiac catheterization for acute CO 06/29/2018 2. Hyperlipidemia 3. DM2, non-insulin requiring 4. Morbid obesity Will continue ASA 81 mg, lipitor. Cardiology added Effient 10 mg daily, will continue. Since patient is post cardiac cath, will continue maintenance IVF @ 100. Patient will have carbohydrate consistent diet. Will repeat cbc, bmp tomorrow. Will start Insulin sliding scale for diabetes. Will continue to monitor closely. Case reviewed and discussed with attending, Dr Larsen. <Tremayne Larsen S - Last Filed: 07/05/18 16:55> Results - Vital Signs Recent Vital Signs: Last Vital Signs Temp 98.2 F 07/05/18 10:58 Pulse 66 07/05/18 12:25 Resp 18 07/05/18 12:25 BP 104/68 07/05/18 12:25 Pulse Ox 94 L 07/05/18 06:39 - Labs Result Diagrams: 07/05/18 06:35 07/05/18 06:35 Labs: Laboratory Results - last 24 hr 07/05/18 07/05/18 07/05/18 06:35 06:35 06:35 WBC 10.3 RBC 4.96 Hgb 10.5 L Hct 35.4 L MCV 71.4 L MCH 21.2 L MCHC 29.7 L RDW 15.9 H Plt Count 324 MPV 9.4 Neut % (Auto) 67.9 Lymph % (Auto) 22.9 [place] % (Auto) 5.9 Eos % (Auto) 2.9 Baso % (Auto) 0.4 Lymph # (Auto) 2.4 [place] # (Auto) 0.6 Eos # (Auto) 0.3 Baso # (Auto) 0.04 Absolute Neuts (auto) 6.98 H PT 13.6 H INR 1.20 APTT 35.9 Sodium 137 Potassium 4.3 Chloride 102 Carbon Dioxide 28 Anion Gap 11 BUN 18 Creatinine 0.9 Est GFR ( Amer) > 60 Est GFR (Non-Af Amer) > 60 POC Glucose (mg/dL) Random Glucose 260 H Calcium 8.7 Blood Type Antibody Screen BBK History Checked 07/05/18 07/05/18 06:35 11:49 WBC RBC Hgb Hct MCV MCH MCHC RDW Plt Count MPV Neut % (Auto) Lymph % (Auto) [place] % (Auto) Eos % (Auto) Baso % (Auto) Lymph # (Auto) [place] # (Auto) Eos # (Auto) Baso # (Auto) Absolute Neuts (auto) PT INR APTT Sodium Potassium Chloride Carbon Dioxide Anion Gap BUN Creatinine Est GFR ( Amer) Est GFR (Non-Af Amer) POC Glucose (mg/dL) 297 H Random Glucose Calcium Blood Type A POSITIVE Antibody Screen Negative BBK History Checked Patient has bt Assessment & Plan - Assessment and Plan (Free Text) Assessment: Pt seen and examined by me. I have reviewed the note of the medical record librarians teacher and I agree with it. I have discussed the assessment and plan with the resident. I have reviewed the medications and the last labs.
[2018-07-05] MEDS: Insulin Reg-HIGH-Coverage SC SCH ×3 (12:47→22:30)
--- NOTE | 2018-07-05 13:48 | CARDCATH ---
PROCEDURE DATE: 07/05/2018 HISTORY: The patient is a 62-year-old male who presented with an acute inferior wall [place] complicated by ventricular tachycardia last week. He underwent successful PTCA and stent of an occluded RCA as well as two lesions in the circumflex artery. He is brought back today for attempted at PTCA of a chronically occluded LAD. The left femoral artery was cannulated with a 6-Kyrgyz sheath. There were no complications. I performed moderate sedation which included the presence of an independent trained observer that assisted in monitoring the patient's level of consciousness and physiologic status. After administration of Versed and fentanyl, my intra service time was 45 minutes. The findings on catheterization revealed a right dominant circulation. The RCA revealed a patent stent in its proximal portion. The circumflex artery revealed a patent stent in its proximal portion as well as in the midportion of an obtuse marginal branch. The LAD was occluded in its proximal portion with minimal filling of the distal vessel. The patient was started on intravenous Angiomax on the fluoroscopic guide, the guiding catheter was placed in the ostium of the left main artery. Multiple wires were used to attempt to cross the total occlusion. The lesion was able to be penetrated and placed about half-way down the vessel with a residual small amount that could not be crossed. After extensive manipulation, the wire went outside the lumen and could not be reentered the lumen. No staining was noted on repeat angiogram. After extensive attempts, the procedure was aborted. Repeat coronary arteriography revealed no change in the anatomy. There was retrograde bridge filling of the mid and distal LAD noted. Angio-Seal was used to close the left femoral artery site. The patient tolerated the procedure well. In summary, the procedure was unsuccessful PTCA attempt at a chronically occluded LAD which revealed a long lesion. Cardiac catheterization revealed patent stent in the RCA as well as two lesions in the circumflex artery. Given these findings, the patient will be sent to the recovery floor. Need to remain on aspirin indefinitely. We will need to change his Plavix to FEN given his PRU which revealed that he was nontherapeutic on Plavix. He needs to undergo a cardiac risk reduction program. Barry Roblero MD
--- NOTE | 2018-07-05 15:29 | CARD ---
APPROVED REPORT Date of service: 07/05/2018 EKG Measurement Heart [id number] <Conclusion> Normal sinus rhythm Left axis deviation Inferior infarct, age undetermined Anteroseptal infarct, age undetermined Abnormal ECG
--- NOTE | 2018-07-05 20:52 | HP ---
DATE OF EXAM: 07/05/2018 HISTORY OF PRESENT ILLNESS: The patient was seen and examined. I do we with the note of the medical certification specialist. I have gone over the plan of care with the resident. I spoke with Dr. Roblero after the patient had cardiac cath done. The patient did not have any stenting done. The LAD lesion was fairly long, there were collaterals. The patient was taken off of his Plavix due to resistance and will be placed on Effient. The patient had a recent AL and was brought into the hospital again electively for cardiac cath. IMPRESSION AND PLAN: He has history of diabetes. He is morbidly obese with a BMI of 41. He has dyslipidemia. The patient is currently comfortable. He denies any chest pain. I did speak to the patient's at the bedside. I also spoke with Dr. Roblero. He will stay overnight. We will repeat his blood work tomorrow and if he feels well and is cleared by Dr. Roblero, we will most likely discharge the patient home Tremayne Larsen MD
[2018-07-06 00:38] VITALS: RESP 20
[2018-07-06 06:12] VITALS: BP 111/66; TEMP 97; O2SAT 97
[2018-07-06 07:14] LABS: BASO # 0.02 {null, K/mm3} (0.0-2.0); BASO % 0.2 % (0.0-3.0); EOS % 0.2 % (1.5-5.0); HEMOGLOBIN 9.6 g/dL (14.0-18.0); LYMPH # 1.4 (1.2-3.4); LYMPH % 11.7 % (22.0-35.0); MEAN PLATELET VOLUME 9.1 fl (7.0-11.0); MONO # 0.8 (0.1-0.6); MONO % 6.5 % (1.0-6.0); RBC 4.57 {null, 10^6/uL} (3.5-6.1); RED CELL DISTRIBUTION WIDTH 15.8 % (11.5-14.5)
[2018-07-06 07:27] LABS: BLOOD UREA NITROGEN 17 mg/dL (7-21); CALCIUM 8.5 mg/dL (8.4-10.5); GFR NON-AFRICAN AMERICAN > 60
[2018-07-06] MEDS: Insulin Reg-HIGH-Coverage SC SCH (08:59)
--- NOTE | 2018-07-06 10:10 | CP.PCM.DIS ---
Provider - Provider Attending physician: Barry Roblero MD Primary care physician: Agapito Avina MD Time Spent in preparation of Discharge (in minutes): 60 Diagnosis - Discharge Diagnosis (1) Acute coronary syndrome Status: Acute (2) S/P cardiac cath Status: Acute Hospital Course - Lab Results Lab Results: Most Recent Lab Values WBC 12.0 10^3/uL (4.5-11.0) H 07/06/18 06:30 RBC 4.57 10^6/uL (3.5-6.1) 07/06/18 06:30 Hgb 9.6 g/dL (14.0-18.0) L 07/06/18 06:30 Hct 32.0 % (42.0-52.0) L 07/06/18 06:30 MCV 70.0 fl (80.0-105.0) L 07/06/18 06:30 MCH 21.0 pg (25.0-35.0) L 07/06/18 06:30 MCHC 30.0 g/dl (31.0-37.0) L 07/06/18 06:30 RDW 15.8 % (11.5-14.5) H 07/06/18 06:30 Plt Count 311 10^3/uL (120.0-450.0) 07/06/18 06:30 MPV 9.1 fl (7.0-11.0) 07/06/18 06:30 Neut % (Auto) 81.4 % (50.0-68.0) H 07/06/18 06:30 Lymph % (Auto) 11.7 % (22.0-35.0) L 07/06/18 06:30 [place] % (Auto) 6.5 % (1.0-6.0) H 07/06/18 06:30 Eos % (Auto) 0.2 % (1.5-5.0) L 07/06/18 06:30 Baso % (Auto) 0.2 % (0.0-3.0) 07/06/18 06:30 Lymph # (Auto) 1.4 (1.2-3.4) 07/06/18 06:30 [place] # (Auto) 0.8 (0.1-0.6) H 07/06/18 06:30 Eos # (Auto) 0.0 (0.0-0.7) 07/06/18 06:30 Baso # (Auto) 0.02 K/mm3 (0.0-2.0) 07/06/18 06:30 Absolute Neuts (auto) 9.79 (1.4-6.5) H 07/06/18 06:30 PT 13.6 SECONDS (9.4-12.5) H 07/05/18 06:35 INR 1.20 07/05/18 06:35 APTT 35.9 Seconds (26.9-38.3) 07/05/18 06:35 Sodium 136 mmol/L (132-148) 07/06/18 06:30 Potassium 3.6 mmol/L (3.6-5.0) 07/06/18 06:30 Chloride 105 mmol/L (98-107) 07/06/18 06:30 Carbon Dioxide 26 mmol/L (21-33) 07/06/18 06:30 Anion Gap 9 (10-20) L 07/06/18 06:30 BUN 17 mg/dL (7-21) 07/06/18 06:30 Creatinine 0.8 mg/dl (0.8-1.5) 07/06/18 06:30 Est GFR ( Amer) > 60 07/06/18 06:30 Est GFR (Non-Af Amer) > 60 07/06/18 06:30 POC Glucose (mg/dL) 220 mg/dL (65-110) H 07/06/18 07:27 Random Glucose 264 mg/dL (70-110) H 07/06/18 06:30 Calcium 8.5 mg/dL (8.4-10.5) 07/06/18 06:30 Blood Type A POSITIVE 07/05/18 06:35 Antibody Screen Negative 07/05/18 06:35 BBK History Checked Patient has bt 07/05/18 06:35 - Hospital Course Hospital Course: This is a 62 year old male with past medical history of hyperlipidemia, diabetes mellitus, hiatal hernia, and active smoker, came to [facility] a scheduled cardiac cath with Dr Roblero. Patient previously was admitted to [facility] recently from 06/29 to 07/01 for STEMI, code heart called, placed 3 drug eluting stents with emergent cardiac cath. Patient discharged home on Aspirin, plavix, lipitor, metoprolol and lisinopril. Cardiac cath this time showed a long LAD lesion with collaterals. The stents put in at last cardiac cath were patent. Patient was found to be resistant to Plavix. Thus, his medication was changed to Effient. Patient tolerated the procedure well, with stable hemoglobin, Cr the next day. Patient ambulating well in the room, tolerating PO diet well. Will discharge patient home, patient will continue his other home medications with effient. Verbalized understanding of the importance of asa and effient. Discharge Exam - Head Exam Head Exam: ATRAUMATIC, NORMOCEPHALIC - Eye Exam Eye Exam: EOMI, PERRL. absent: Conjunctival injection, Nystagmus, Scleral icterus Pupil Exam: NORMAL ACCOMODATION, PERRL. absent: Irregular, Miosis, Mydriatic - ENT Exam ENT Exam: Mucous Membranes Moist - Neck Exam Neck exam: Full Rom - Respiratory Exam Respiratory Exam: Clear to PA & Lateral, NORMAL BREATHING PATTERN. absent: Chest Wall Tenderness, Prolonged Expiratory Phase, Rales, Rhonchi, Respiratory Distress, Stridor - Cardiovascular Exam Cardiovascular Exam: RRR, +S1, +S2. absent: Systolic Murmur - GI/Abdominal Exam GI & Abdominal Exam: Normal Bowel Sounds, Soft. absent: Distended, Firm, Guarding, Pulsatile Mass, Rebound, Rigid - Extremities Exam Extremities exam: normal inspection - Back Exam Back exam: NORMAL INSPECTION - Neurological Exam Neurological exam: Alert, Oriented x3 - Psychiatric Exam Psychiatric exam: Normal Affect, Normal Mood - Skin Skin Exam: Dry, Normal Color, Warm Discharge Plan - Follow Up Plan Condition: GOOD Disposition: HOME/ ROUTINE Instructions: Heart Attack (DC), Medicines After a Heart Attack, Lowering Your Risk of Heart Disease, Aspirin to Prevent Heart Attacks, Cancer, and Additional Instructions: Follow up with Dr Avina in 3-5 days. Follow up with Dr Roblero in 1-2 weeks. Take medications as directed. Stop taking Plavix. Instead, you are started on Effient. Return to the emergency room for any worsening of symptoms. Referrals: Agapito Avina MD [Primary Care Provider] -
--- NOTE | 2018-07-06 10:34 | CARD ---
APPROVED REPORT Date of service: 07/06/2018 EKG Measurement Heart [id number] <Conclusion> Normal sinus rhythm Left axis deviation Inferior infarct, age undetermined Anteroseptal infarct, age undetermined Abnormal ECG
[2018-07-06 13:40] VITALS: PULSE 71
--- NOTE | 2018-07-06 17:53 | PN ---
DATE: 07/06/2018 CARDIOLOGY FOLLOWUP SUBJECTIVE: The patient is without distress. PHYSICAL EXAMINATION: VITAL SIGNS: Blood pressure is 111/66, heart rates in the 70s. NECK: Negative JVD. LUNGS: Without rales. HEART: S1 and S2. EXTREMITIES: Okay. Left groin site is stable. LABORATORY DATA: BUN and creatinine are unremarkable. Glucose is 264, hemoglobin is 9.6. IMPRESSION: 1. Stable post attempted percutaneous transluminal coronary angioplasty and stent of a chronically occluded left anterior descending artery. 2. Status post percutaneous transluminal coronary angioplasty and stent of an occluded right coronary artery and circumflex artery. 3. Anemia. 4. Hypercholesterolemia. 5. Chronic obstructive pulmonary disease. 6. Obesity. 7. Diabetes mellitus. 8. Plavix resistance. Given these findings, the patient can be discharged on p.o. Effient. We will start the patient on an exercise program. Barry Roblero MD
--- NOTE | 2018-07-07 05:17 | DS ---
HOSPITAL COURSE: The patient was admitted to the hospital likely for repeat cardiac cath. The patient did well. He did not require any stenting. He had his Plavix resistance and has been placed on Effient. He was discharged home. He has no bleeding in his groin area. He does have a history of acute [place] with ST elevation last week. He has 3 drug-eluting stents that were placed. The patient will be discharged home. He has dyslipidemia and is on statin and Lipitor. He has diabetes type 2 and is going to continue with his treatment. He was advised about weight loss and smoking cessations. He is also advised about diet and exercise. The patient currently feels well. The patient was seen and examined by me, I do agree with the note of the medical laboratory scientist. I was involved in the plan of care. Tremayne Larsen MD
== END 2018-07-06 12:40 | disposition home or self-care (01) ==
LOC: CATH 06:02 → 2RSO 09:28 → CATH 07-06 12:40
PROVIDERS: ATTEND Internal Medicine Cardiovascular Disease
DX: I25.10 Atherosclerotic heart disease of native coronary artery without angina pectoris (principal); I21.3 ST elevation (STEMI) myocardial infarction of unspecified site; I24.9 Acute ischemic heart disease, unspecified; E11.9 Type 2 diabetes mellitus without complications; E66.01 Morbid (severe) obesity due to excess calories; Z68.41 Body mass index [BMI] 40.0-44.9, adult; D64.9 Anemia, unspecified; E78.00 Pure hypercholesterolemia, unspecified; E78.5 Hyperlipidemia, unspecified; I25.2 Old myocardial infarction; I47.2 Ventricular tachycardia; J44.9 Chronic obstructive pulmonary disease, unspecified; K21.9 Gastro-esophageal reflux disease without esophagitis; K44.9 Diaphragmatic hernia without obstruction or gangrene; Z79.02 Long term (current) use of antithrombotics/antiplatelets; Z95.5 Presence of coronary angioplasty implant and graft
CPT/HCPCS: 36415 ×2; 80048 ×2; 82948 ×2; 85025 ×2; 85576; 85610; 85730; 86850; 86900; 93005 ×2; 93454; 99152; 99153; C1725; C1760; C1769 ×4; C1887; C2629; C9600; J0583; J1200; J1644; J2250; J2930; J3010; J7030; J7040; Q9966; Q9967 ×3

== ENCOUNTER 2018-08-02 06:02 | Outpatient (CLI) | payer BC | END 2018-08-02 06:03 | disposition home or self-care (01) | LOC: CARDIO 06:02 ==